=== PATIENT | male | born 1945 | race Caucasian/White ===

== ENCOUNTER 2021-08-08 11:56 | Observation (INO) | payer MEDICAID, SELFPAY ==
--- NOTE | 2021-08-08 12:09 | ECG_ITS ---
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 Measurements Intervals [place] Rate: 104 P: [place]: QRS: -82 QRSD: 128 T: 90 QT: 389 QTc: 512 Interpretive Statements ATRIAL fibrillation with rapid ventricular rate. CONDUCTION OR VENTRICULAR PREMATURE COMPLEXES LEFT AXIS DEVIATION [QRS AXIS < -30] POSSIBLE RIGHT VENTRICULAR CONDUCTION DELAY [RSR (QR) IN V1/V2] LEFT BUNDLE BRANCH BLOCK [120+ ms QRS DURATION, 80+ ms Q/S IN V1/V2, 85+ ms R IN I/aVL/V5/V6] No previous ECG available for comparison Electronically Signed On 08-08-2021 23:55:31 RESEARCH METHODOLOGIST by Mariano Luna M.D. [id number]
--- NOTE | 2021-08-08 12:10 | W.ED.SOB ---
Documented by User: ROSSY Faustin 08/08/21 16:11 HPI - SOB/Dyspnea General: Chief Complaint: Shortness of Breath/Dyspnea Stated Complaint: sob Time Seen by Provider: 08/08/21 16:28 History of Present Illness: HPI Narrative: Patient presents here today with gradually worse shortness of breath. Patient denies any recent illness. Denies any significant health problems. Says he is fine is really hard to breathe when he lays down at night. Does have some increased shortness of breath exertion but is in no distress when he is exerting himself. Denies any history of fluid buildup in his extremities. Also denies cough fever chills or heart difficulties Patient does appear to have dementia after visiting with him a few times MD elicited complaint: shortness of breath [facility] ED PFSH: Medical History (Updated 08/09/21 @ 13:02 by Arie Oneil MD) Congestive heart failure COPD (chronic obstructive pulmonary disease) New onset atrial fibrillation No significant past medical history Surgical History (Updated 08/08/21 @ 22:10 by Arie Oneil MD) No significant past surgical history Family History (Updated 08/08/21 @ 22:11 by Arie Oneil MD) Denies family history of Clotting disorder Chronic kidney disease (CKD) Cancer Social History (Updated 08/08/21 @ 22:11 by Arie Oneil MD) Smoking and tobacco status: former smoker Alcohol intake: former Caregiver/support person: No Lives independently: Yes Household members: none Course Vital Signs: Vital signs: Vital Signs Temperature 97.7 F 08/09/21 09:15 Pulse Rate 92 08/09/21 13:11 Respiratory Rate 27 H 08/09/21 13:11 Blood Pressure 135/83 08/09/21 13:11 Pulse Oximetry 96 08/09/21 09:15 MDM - SOB/Dyspnea MDM Narrative Medical decision making narrative: Brief history and physical exam was performed as part of the triage process. Due to current ED wait time patient will be placed in waiting room until a room becomes available. Explained to patient he/she will be seen in order of severity. Patient is currently safe to wait in the waiting room until we can get them placed. Patient informed that if condition worsens at any time to please let the front end developer know. On patient recheck at 1400 patient appears confused as to his story about shortness of breath. He says only been short of breath 20 minutes and then I kill him about he told me he had been short of breath for couple days then he said he started on Sunday. Has been short of breath since then. He denies any chest pain Lab Data Result diagrams: 08/09/21 02:34 08/09/21 02:34 Labs: Lab Results 08/08/21 08/08/21 08/08/21 13:40 13:40 13:40 WBC 7.4 10^3/uL 10^3/uL (4.0-10.0) RBC 4.79 10^6/uL 10^6/uL (4.1-5.3) Hgb 14.8 g/dL g/dL (11.7-16.6) Hct 41.8 % L % (42.0-52.0) MCV 87.3 fl fl (80-94) MCH 30.9 pg pg (28.0-34.0) MCHC 35.4 g/dL g/dL (30.0-36.0) RDW 12.4 % % (12.1-15.1) Plt Count 206 10^3/cmm 10^3/cmm (130-400) MPV 10.2 fL fL (7.4-10.4) Neut % (Auto) 70.7 % % Lymph % (Auto) 19.2 % % Terry % (Auto) 9.3 % % Eos % (Auto) 0.1 % % Baso % (Auto) 0.3 % % Neut # (Auto) 5.26 10^3/uL 10^3/uL (1.8-7.7) Lymph # (Auto) 1.4 10^3/uL 10^3/uL (0.8-4.8) Terry # (Auto) 0.7 10^3/uL 10^3/uL (0.2-0.9) Eos # (Auto) 0.0 10^3/uL 10^3/uL (0.0-0.8) Baso # (Auto) 0.0 10^3/uL 10^3/uL (0.0-0.1) Nucleated RBC % (auto) 0 % % Nucleated RBCs # 0.0 /100WBC /100WBC PT 14.10 SECONDS SECONDS (12.1-14.9) INR 1.06 (0.8-1.2) Sodium 130 mmol/L L mmol/L (136-145) Potassium 5.0 mmol/L mmol/L (3.5-5.1) Chloride 94 mmol/L L mmol/L (98-107) Carbon Dioxide 20 mmol/L L mmol/L (22-29) Anion Gap 21.0 H (5-19) BUN 20 mg/dL mg/dL (8-23) Creatinine 0.8 mg/dL mg/dL (0.7-1.2) GFR Calculation Not Reportable Glucose 245 mg/dL H mg/dL (65-115) Calculated Osmolality 281 mOsm/kg L mOsm/kg (285-295) Calcium 9.2 mg/dL mg/dL (8.5-10.5) Total Bilirubin 0.7 mg/dL mg/dL (0.15-1.2) AST 33 U/L U/L (0-40) ALT 31 U/L U/L (0-41) Alkaline Phosphatase 129 IU/L IU/L (40-130) Troponin T Baseline Troponin T 120 Minute Delta Troponin T NT-Pro-B Natriuret Pep 3410 pg/mL H pg/mL (0-450) Total Protein 6.2 g/dL L g/dL (6.6-8.7) Albumin 4.0 g/dL g/dL (3.5-5.2) Globulin 2.2 g/dL g/dL (1.3-4.6) TSH 3.70 uIU/mL uIU/mL (0.27-4.20) 08/08/21 08/08/21 13:40 16:04 WBC RBC Hgb Hct MCV MCH MCHC RDW Plt Count MPV Neut % (Auto) Lymph % (Auto) Terry % (Auto) Eos % (Auto) Baso % (Auto) Neut # (Auto) Lymph # (Auto) Terry # (Auto) Eos # (Auto) Baso # (Auto) Nucleated RBC % (auto) Nucleated RBCs # PT INR Sodium Potassium Chloride Carbon Dioxide Anion Gap BUN Creatinine GFR Calculation Glucose Calculated Osmolality Calcium Total Bilirubin AST ALT Alkaline Phosphatase Troponin T Baseline 51 ng/L H ng/L (0-15) Troponin T 120 Minute 53.05 ng/L H ng/L (0-15) Delta Troponin T 2.05 ABS# ABS# (0-10) NT-Pro-B Natriuret Pep Total Protein Albumin Globulin TSH Discharge Plan Discharge Patient Disposition: Placed in Observation Admit Provider: Arie Oneil Clinical Impression: New onset atrial fibrillation, Atrial fibrillation with rapid ventricular response Discharge Diet: Cardiac Discharge Activity: Resume usual activity Coding Level of Care Code ED Latex Fashions Designer for Chg Fwd Documented by User: Rickie Baptiste MD 08/12/21 21:30 HPI - SOB/Dyspnea General: Chief Complaint: Shortness of Breath/Dyspnea Stated Complaint: sob Time Seen by Provider: 08/08/21 16:28 [facility] ED PFSH: Medical History (Updated 08/09/21 @ 13:02 by Arie Oneil MD) Congestive heart failure COPD (chronic obstructive pulmonary disease) New onset atrial fibrillation No significant past medical history Surgical History (Updated 08/08/21 @ 22:10 by Arie Oneil MD) No significant past surgical history Family History (Updated 08/08/21 @ 22:11 by Arie Oneil MD) Denies family history of Clotting disorder Chronic kidney disease (CKD) Cancer Social History (Updated 08/08/21 @ 22:11 by Arie Oneil MD) Smoking and tobacco status: former smoker Alcohol intake: former Caregiver/support person: No Lives independently: Yes Household members: none Course Vital Signs: Vital signs: Vital Signs Temperature 97.7 F 08/09/21 09:15 Pulse Rate 92 08/09/21 13:11 Respiratory Rate 27 H 08/09/21 13:11 Blood Pressure 135/83 08/09/21 13:11 Pulse Oximetry 96 08/09/21 09:15 MDM - SOB/Dyspnea MDM Narrative Medical decision making narrative: I discussed this case with Davide Puckett NP. I personally reperformed sinha portions of E/M. I reviewed documentation, labs, imaging. Rickie Baptiste MD Emergency Medicine Lab Data Result diagrams: 08/09/21 02:34 08/09/21 02:34 Labs: Lab Results 08/08/21 08/08/21 08/08/21 13:40 13:40 13:40 WBC 7.4 10^3/uL 10^3/uL (4.0-10.0) RBC 4.79 10^6/uL 10^6/uL (4.1-5.3) Hgb 14.8 g/dL g/dL (11.7-16.6) Hct 41.8 % L % (42.0-52.0) MCV 87.3 fl fl (80-94) MCH 30.9 pg pg (28.0-34.0) MCHC 35.4 g/dL g/dL (30.0-36.0) RDW 12.4 % % (12.1-15.1) Plt Count 206 10^3/cmm 10^3/cmm (130-400) MPV 10.2 fL fL (7.4-10.4) Neut % (Auto) 70.7 % % Lymph % (Auto) 19.2 % % Terry % (Auto) 9.3 % % Eos % (Auto) 0.1 % % Baso % (Auto) 0.3 % % Neut # (Auto) 5.26 10^3/uL 10^3/uL (1.8-7.7) Lymph # (Auto) 1.4 10^3/uL 10^3/uL (0.8-4.8) Terry # (Auto) 0.7 10^3/uL 10^3/uL (0.2-0.9) Eos # (Auto) 0.0 10^3/uL 10^3/uL (0.0-0.8) Baso # (Auto) 0.0 10^3/uL 10^3/uL (0.0-0.1) Nucleated RBC % (auto) 0 % % Nucleated RBCs # 0.0 /100WBC /100WBC PT 14.10 SECONDS SECONDS (12.1-14.9) INR 1.06 (0.8-1.2) Sodium 130 mmol/L L mmol/L (136-145) Potassium 5.0 mmol/L mmol/L (3.5-5.1) Chloride 94 mmol/L L mmol/L (98-107) Carbon Dioxide 20 mmol/L L mmol/L (22-29) Anion Gap 21.0 H (5-19) BUN 20 mg/dL mg/dL (8-23) Creatinine 0.8 mg/dL mg/dL (0.7-1.2) GFR Calculation Not Reportable Glucose 245 mg/dL H mg/dL (65-115) Calculated Osmolality 281 mOsm/kg L mOsm/kg (285-295) Calcium 9.2 mg/dL mg/dL (8.5-10.5) Total Bilirubin 0.7 mg/dL mg/dL (0.15-1.2) AST 33 U/L U/L (0-40) ALT 31 U/L U/L (0-41) Alkaline Phosphatase 129 IU/L IU/L (40-130) Troponin T Baseline Troponin T 120 Minute Delta Troponin T NT-Pro-B Natriuret Pep 3410 pg/mL H pg/mL (0-450) Total Protein 6.2 g/dL L g/dL (6.6-8.7) Albumin 4.0 g/dL g/dL (3.5-5.2) Globulin 2.2 g/dL g/dL (1.3-4.6) TSH 3.70 uIU/mL uIU/mL (0.27-4.20) 08/08/21 08/08/21 13:40 16:04 WBC RBC Hgb Hct MCV MCH MCHC RDW Plt Count MPV Neut % (Auto) Lymph % (Auto) Terry % (Auto) Eos % (Auto) Baso % (Auto) Neut # (Auto) Lymph # (Auto) Terry # (Auto) Eos # (Auto) Baso # (Auto) Nucleated RBC % (auto) Nucleated RBCs # PT INR Sodium Potassium Chloride Carbon Dioxide Anion Gap BUN Creatinine GFR Calculation Glucose Calculated Osmolality Calcium Total Bilirubin AST ALT Alkaline Phosphatase Troponin T Baseline 51 ng/L H ng/L (0-15) Troponin T 120 Minute 53.05 ng/L H ng/L (0-15) Delta Troponin T 2.05 ABS# ABS# (0-10) NT-Pro-B Natriuret Pep Total Protein Albumin Globulin TSH Discharge Plan Discharge Patient Disposition: Placed in Observation Admit Provider: Arie Oneil Clinical Impression: New onset atrial fibrillation, Atrial fibrillation with rapid ventricular response Discharge Diet: Cardiac Discharge Activity: Resume usual activity Coding Level of Care Code ED Latex Fashions Designer for Guero Potter
[2021-08-08 13:25] VITALS: BP 154/90; PULSE 108; RESP 20; TEMP 36.6; O2SAT 95; BMI 26.2
--- NOTE | 2021-08-08 13:44 | XR_ITS ---
WS: [id number] PORTABLE CHEST HISTORY: sob COMPARISON: None available. Lung volumes are decreased. Perihilar stranding and increased areas of opacification. Small bilateral pleural effusions. No pneumothorax. Cardiac size: Normal. Mediastinum/Aorta: Mild atherosclerosis aorta. No osseous abnormality seen. XR/XR chest 1V portable [id number] IMPRESSION: 1. Moderate perihilar edema versus pneumonitis. 2. Small bilateral pleural effusions.
[2021-08-08 14:10] LABS: Basophils % 0.3 %; Eosinophils % 0.1 %; Hematocrit 41.8 % (42.0-52.0); Hemoglobin 14.8 g/dL (11.7-16.6); Lymphocytes # 1.4 10^3/uL (0.8-4.8); Lymphocytes % 19.2 %; Mean Corpuscular HGB Conc 35.4 g/dL (30.0-36.0); Mean Corpuscular Hemoglobin 30.9 pg (28.0-34.0); Mean Corpuscular Volume 87.3 fl (80-94); Mean Platelet Volume 10.2 fL (7.4-10.4); Monocytes # 0.7 10^3/uL (0.2-0.9); Monocytes % 9.3 %; Neutrophils # 5.26 10^3/uL (1.8-7.7); Neutrophils % 70.7 %; Nucleated Red Blood Cells % 0 %; Platelet Count 206 10^3/cmm (130-400); Red Blood Count 4.79 10^6/uL (4.1-5.3); Red Cell Distribution Width 12.4 % (12.1-15.1); White Blood Count 7.4 10^3/uL (4.0-10.0)
[2021-08-08 14:20] LABS: INR 1.06 (0.8-1.2)
[2021-08-08 14:37] LABS: Troponin(5th) Baseline 51 ng/L (0-15)
[2021-08-08 14:47] LABS: Alanine Aminotransferase 31 U/L (0-41); Alkaline Phosphatase 129 IU/L (40-130); Aspartate Amino Transferase 33 U/L (0-40); Blood Urea Nitrogen 20 mg/dL (8-23); Calcium 9.2 mg/dL (8.5-10.5); Carbon Dioxide 20 mmol/L (22-29); Chloride 94 mmol/L (98-107); Globulin 2.2 g/dL (1.3-4.6); Glucose 245 mg/dL (65-115); NT Pro B Type Natriuretic Pept 3410 pg/mL (0-450); Osmolality Calculated 281 mOsm/kg (285-295); Sodium 130 mmol/L (136-145); Total Bilirubin 0.7 mg/dL (0.15-1.2); Total Protein 6.2 g/dL (6.6-8.7)
[2021-08-08 16:34] LABS: Troponin 5 2HR 53.05 ng/L (0-15); Troponin 5 2HR Delta 2.05 ABS# (0-10)
[2021-08-08 17:20] VITALS: BP 123/94; PULSE 105; RESP 26; TEMP 36.7; O2SAT 94
--- NOTE | 2021-08-08 18:09 | ECG_ITS ---
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 Measurements Intervals [place] Rate: 102 P: [place]: QRS: -65 QRSD: 124 T: 107 QT: 373 QTc: 488 Interpretive Statements ATRIAL FLUTTER WITH RAPID VENTRICULAR RESPONSE LEFT AXIS DEVIATION [QRS AXIS < -30] LEFT BUNDLE BRANCH BLOCK [120+ ms QRS DURATION, 80+ ms Q/S IN V1/V2, 85+ ms R IN I/aVL/V5/V6] Compared to ECG 08/08/2021 13:34:37 Ventricular premature complex(es) no longer present Aberrant conduction of supraventricular beat(s) no longer present Electronically Signed On 08-09-2021 17:29:20 INFORMATICS SPECIALIST by Inés Oneill M.D. [id number]
[2021-08-08 18:30] VITALS: PULSE 96
[2021-08-08] MEDS: FUROsemide 10 mg/mL SDV 4mL 40 MG IVP (18:33)
[2021-08-08] MEDS: dilTIAZem 30 mg Tablet PO ×2 (18:33→21:10)
--- NOTE | 2021-08-08 18:35 | PC.NURSE ---
REPORT TO CSU RN, PATIENT TRANSFERRED VIA WC
--- NOTE | 2021-08-08 18:59 | PM.HP ---
Providers/Chief Complaint Admitting Physician: Arie Oneil MD Chief Complaint: sob History of Present Illness Ramon Mims is a 75 year old male with no significant past medical history and surgical history, not seen a PCP every life who lives for himself presented to the ER today with shortness of breath which has been getting worse over last 1 week. Shortness of breath of start was only on exertion but lately for last 3 days has been getting worse on laying down flat especially at night and now even at rest which made him come to the ER. In the ER he was found to be in atrial fibrillation without rapid ventricular response. Patient has not been vaccinated for COVID 19. Denies any fever. Does complain of shortness of breath, occasional episodes of palpitation, cough but denies any chest pain, chest heaviness, dizziness, loss of consciousness or weakness in any of the arms. Review of Systems General: Reports: 10 or more systems reviewed and unremarkable except in HPI and below Const: Denies: fever(s), chills, body aches, change in appetite, change in weight, malaise, night sweats, diaphoresis, change in sleep pattern, daytime sleepiness or snoring Eyes: Denies: change in vision, blurry vision, photophobia, eye discomfort or eye discharge ENMT: Denies: throat pain, enlarged tonsils, hoarseness, mouth pain, oral sores, dry mouth, tinnitus, nasal congestion or post nasal drip Card: Denies: chest pain, palpitations, irregular heart rhythm, edema, swelling of feet/ankles, lightheadedness, syncope, pre-syncope, dyspnea on exertion, orthopnea, leg pain with exertion or acrocyanosis Resp: Denies: dyspnea, productive cough, non-productive cough, wheezing, stridor, pain on inspiration, change in phlegm color, hemoptysis or chest congestion GI: Denies: abdominal pain, nausea, vomiting, hematemesis, coffee ground emesis, dysphagia, heartburn, diarrhea, constipation, bloating, GI cramping, change in bowel habits, pain on defecation, hematochezia or melena : Denies: flank pain, difficulty urinating, dysuria, urinary frequency, urinary urgency, urinary hesitancy, urinary dribbling, difficulty starting urination, change in urine stream, nocturia or hematuria Musc: Denies: neck pain, back pain, extremity pain, joint pain, joint swelling, joint redness, joint stiffness or limited range of motion Neuro: Denies: headache(s), numbness in extremities, weakness in extremities, sensory changes, lack of coordination, difficulty walking, frequent falls, dizziness, vertigo, confusion, Slurred speech present, difficulty communicating thoughts or seizure-like activity Psych: Denies: anxiety, depression, mood swings, panic attacks, hopelessness or irritability Endo: Denies: polyuria, polydipsia, tired all the time, cold intolerance, excessive sweating, flushing or heat intolerance Brandin/Lymph: Denies: easy bruising or easy bleeding All/Imm: Denies: tongue swelling, facial swelling or acute wheezing Medications/Allergies Allergies Allergy/AdvReac Type Severity Reaction Status Date / Time No Known Allergies Allergy Verified 08/08/21 13:24 PFSH Acute PFSH: Medical History (Updated 08/08/21 @ 22:15 by Arie Oneil MD) No significant past medical history Surgical History (Updated 08/08/21 @ 22:10 by Arie Oneil MD) No significant past surgical history Family History (Updated 08/08/21 @ 22:11 by Arie Oneil MD) Denies family history of Clotting disorder Chronic kidney disease (CKD) Cancer Social History (Updated 08/08/21 @ 22:11 by Arie Oneil MD) Smoking and tobacco status: former smoker Alcohol intake: former Caregiver/support person: No Lives independently: Yes Household members: none Vitals/I&O/Wt Last Vital Signs Temp 98.1 F 08/08/21 17:20 Pulse 96 08/08/21 18:30 Resp 26 H 08/08/21 17:20 BP 123/94 08/08/21 17:20 Pulse Ox 94 08/08/21 17:20 Weight last 48 hrs Weight 95.436 kg Weight 85.457 kg Physical Exam Narrative: EXAM NARRATIVE: General: No acute distress, AO x3 HEENT: PERRLA, pupils bilaterally equal and reactive Chest: Normal vesicular breath sounds, no added sounds, equal good air entry bilaterally CVS: S1-S2 irregularly irregular, soft pansystolic murmur at apex, no tachycardia, no gallops, no rubs Abdomen: Soft, nontender, no organomegaly, bowel sounds present Neuro: No focal deficits, no facial deformity, AO x3, power 5/5 in all limbs Data : 08/08/21 13:40 08/08/21 13:40 A&P Assessment and plan (1) New onset atrial fibrillation: Status: Acute (2) Congestive heart failure: Status: Acute Qualifiers: Heart failure chronicity: acute Additional A&P Information New onset A. fib: Not on rapid ventricular response. Start on p.o. Cardizem 30 mg every 6 hourly. TSH within normal limits. Cycle troponins. Check D-dimer. If D-dimer is elevated will do CTA. Prem vas score: 3: 2 for age, 1 for CHF. Spoke with patient detail. Discussed regarding benefits versus risk factors of anticoagulation. Patient is agreeable to start anticoagulation. For now start on 1 mg/kg body weight every 12 hourly Lovenox. Shortness of breath: Most likely secondary to congestive heart failure. No prior history. IV Lasix [address] CT depending on D-dimer. Strict input output charting, daily weights. Fluid restriction up to 1500 cc. Cannot rule out underlying mild COPD. Check iron panel, lipid panel, A1c, COVID-19 antigen, flu swab. Full code. Cardiac diet. Famotidine for PUD prophylaxis. Attestations Medical Necessity Statement*: Under observation for new onset atrial fibrillation, congestive heart failure. Estimate less than 2 days Time Spent in Patient Care: Greater than 35 minutes (>than 50% of time spent in counselling and/or direct pt care on unit). Coding Level of Care Code Acute Bundle Wrapper for Guero Potter Diagnoses New onset atrial fibrillation I48.91 Congestive heart failure I50.9 Heart failure chronicity: acute
[2021-08-08 19:52] VITALS: PULSE 98
[2021-08-08 20:00] VITALS: BP 133/78; PULSE 96; RESP 18; TEMP 36.6; O2SAT 92
[2021-08-08 20:22] LABS: Add Urine Microscopic? NO; Charge for UA Resulting for Rev
[2021-08-08 20:27] LABS: Bilirubin Urine Neg (Negative); Blood Urine Neg (Negative); Glucose Urine UA Norm (Normal); Ketones Urine 1+ (Negative); Leukocyte Esterase Urine Negative (Negative); Nitrate Urine Negative (Negative); Protein Urine Neg (Negative); Specific Gravity, Urine 1.015 (1.005-1.030); Urine Appearance Clear (CLEAR); Urine Color Yellow (Yellow); Urobilinogen Urine Norm (Negative); pH Urine 5 (5-7)
[2021-08-08 20:37] LABS: Amphetamines Screen Urine Negative (Negative); Barbiturates Screen Urine Negative (Negative); Benzodiazepines Screen Urine Negative (Negative); Cocaine Screen Urine Negative (Negative); Opiate Screen Urine Negative (Negative); PCP Screen Urine Negative (Negative); THC Screen Urine Negative (Negative)
[2021-08-08 20:59] LABS: D Dimer 2.49 ug/mIFEU (0-0.59)
[2021-08-08 21:02] LABS: Iron 55 ug/dL (59-158); Percent Saturation 16.9 % (20-50); Total Iron Binding Capacity 325 mcg/dl; Unsaturated Iron Binding 270 ug/dL (112-347)
[2021-08-08 21:03] LABS: Troponin 5 6HR 56.38 ng/L (0-15); Troponin 5 6HR Delta 5.38 ng/L (0-12)
[2021-08-08] MEDS: enoxaparin 100 mg/mL Syringe SUBCUT (21:06)
[2021-08-08] MEDS: famotidine 20 mg/2 mL INJ IVP (21:10)
[2021-08-08 22:00] VITALS: PULSE 106
--- NOTE | 2021-08-08 22:07 | CTR_ITS ---
PROCEDURE INFORMATION: Exam: CTA Chest With Contrast Exam date and time: 08/08/2021 10:07 PM Age: 75 years old Clinical indication: Abnormal findings; Abnormal diagnostic tests; Elevated d-dimer; Additional info: Elevated dimer, afib TECHNIQUE: Imaging protocol: Computed tomographic angiography of the chest with contrast. 3D rendering (Not supervised by radiologist): MIP and/or 3D reconstructed images were created by the technologist. Radiation optimization: All CT scans at this facility use at least one of these dose optimization techniques: automated exposure control; mA and/or kV adjustment per patient size (includes targeted exams where dose is matched to clinical indication); or iterative reconstruction. Contrast material: VISI; Contrast volume: 95 ml; Contrast route: INTRAVENOUS (IV); COMPARISON: CR XR chest 1V portable [id number] 08/08/2021 1:50 PM RADIATION DOSE METRICS: Total DLP (mGy-cm): 623.54 FINDINGS: Pulmonary arteries: The pulmonary arteries are adequately opacified for evaluation to the subsegmental level. There is no filling defect to suggest embolism. Aorta: There is mild aortic atherosclerotic disease. Lungs: Moderate severity bilateral lung disease characterized by patchy upper lung predominant consolidation with interlobular septal thickening the lower lungs bilaterally. Pleural spaces: Moderate size bilateral pleural effusions. Heart: There is mild cardiac enlargement. There is no pericardial effusion. There is moderate coronary artery calcification. Lymph nodes: Diffusely prominent upper mediastinal lymph nodes of uncertain significance. Prominent bilateral hilar lymph nodes of uncertain significance. Bones/joints: Bones are unremarkable. Soft tissues: The extrathoracic soft tissues are unremarkable. CT/CT angio chest PE protcl [id number] IMPRESSION: 1. Moderate severity bilateral lung disease described above. Probable infection. Indeterminate imaging features of COVID-19 pneumonia. The pulmonary imaging features present here can be seen with COVID-19 pneumonia, though are nonspecific and can occur with a variety of infectious and noninfectious processes. 2. No pulmonary embolism. 3. Moderate bilateral pleural effusions.
[2021-08-08 22:49] LABS: Adenovirus Not Detected (NOT DETECT); Chlamydia Pneumoniae Not Detected (NOT DETECT); Coronavirus 229E,HKU1,NL63,OC4 Not Detected (NOT DETECT); Human Metapneumovirus Not Detected (NOT DETECT); Human Rhinovirus/Enterovirus Not Detected (NOT DETECT); Influenza A Not Detected (NOT DETECT); Influenza A H1 Not Detected (NOT DETECT); Influenza A H1-2009 Not Detected (NOT DETECT); Influenza A H3 Not Detected (NOT DETECT); Influenza B Not Detected (NOT DETECT); Mycoplasma Pneumoniae Not Detected (NOT DETECT); Parainfluenza Virus Type 1 Not Detected (NOT DETECT); Parainfluenza Virus Type 2 Not Detected (NOT DETECT); Parainfluenza Virus Type 3 Not Detected (NOT DETECT); Parainfluenza Virus Type 4 Not Detected (NOT DETECT); Respiratory Syncytial Virus A Not Detected (NOT DETECT); Respiratory Syncytial Virus B Not Detected (NOT DETECT); SARS-COV-2 Not Detected (NOT DETECT)
[2021-08-08 22:51] LABS: Results from Genmark
[2021-08-08] MEDS: iodixanol 320 mg/mL 100mL Btl IV (23:27)
[2021-08-09] VITALS (53 sets, daily range): BP systolic 118–135; BP diastolic 73–86; PULSE 74–97; RESP 10–31; TEMP 36.5; O2SAT 92–96
[2021-08-09] MEDS: acetaminophen 325 mg Tablet 650 MG PO (00:52)
[2021-08-09] MEDS: dilTIAZem 30 mg Tablet PO ×2 (00:54→06:41)
[2021-08-09 02:57] LABS: Basophils % 0.5 %; Eosinophils % 0.6 %; Hematocrit 41.5 % (42.0-52.0); Hemoglobin 14.7 g/dL (11.7-16.6); Lymphocytes # 1.6 10^3/uL (0.8-4.8); Lymphocytes % 24.1 %; Mean Corpuscular HGB Conc 35.4 g/dL (30.0-36.0); Mean Corpuscular Hemoglobin 31.8 pg (28.0-34.0); Mean Corpuscular Volume 89.8 fl (80-94); Mean Platelet Volume 10.3 fL (7.4-10.4); Monocytes # 0.7 10^3/uL (0.2-0.9); Neutrophils % 63.5 %; Nucleated Red Blood Cells % 0 %; Platelet Count 176 10^3/cmm (130-400); Red Blood Count 4.62 10^6/uL (4.1-5.3); Red Cell Distribution Width 12.5 % (12.1-15.1); White Blood Count 6.6 10^3/uL (4.0-10.0)
[2021-08-09 05:14] LABS: Alanine Aminotransferase 28 U/L (0-41); Albumin Level 3.5 g/dL (3.5-5.2); Alkaline Phosphatase 120 IU/L (40-130); Anion Gap 18.9 (5-19); Aspartate Amino Transferase 30 U/L (0-40); Blood Urea Nitrogen 19 mg/dL (8-23); Calcium 9.9 mg/dL (8.5-10.5); Carbon Dioxide 20 mmol/L (22-29); Chloride 99 mmol/L (98-107); Chol HDL Ratio 3.34 mg/dL (1.0-5.00); Cholesterol 137 mg/dL (0-200); Estmated Average Glucose 189; Globulin 2.9 g/dL (1.3-4.6); Glucose 245 mg/dL (65-115); HDL Cholesterol 41 mg/dL (60-100); Hemoglobin A1C 8.2 % (4.0-6.0); LDL Cholesterol Calculated 73 mg/dL (50-129); Magnesium 1.7 mg/dL (1.7-2.3); Osmolality Calculated 288 mOsm/kg (285-295); Potassium 3.9 mmol/L (3.5-5.1); Sodium 134 mmol/L (136-145); Total Bilirubin 0.6 mg/dL (0.15-1.2); Total Protein 6.4 g/dL (6.6-8.7); Triglycerides 115 mg/dL (0-150); VLDL Cholestrol Calculation 23 mg/dL (0-30)
[2021-08-09 05:16] LABS: INR 1.18 (0.8-1.2)
[2021-08-09] MEDS: enoxaparin 100 mg/mL Syringe SUBCUT (06:40)
[2021-08-09] MEDS: famotidine 20 mg/2 mL INJ IVP (06:41)
--- NOTE | 2021-08-09 08:00 | USCV_ITS ---
Ramon Mims Age: 75 Gender: M : 1945 Exam Date: 08/09/2021 09:44 Ordering Phys: Arie Oneil MD Technologist: CAESAR Exam Location: [facility] [place] Indication: New Afib and shortness of breath. No hx cardiac intervention per patient. BP: 129 / 85 HR: 88 Rhythm: Sinus Technical Quality: Adequate MEASUREMENTS (Male / Female) Normal Values 2D ECHO LV Diastolic Diameter PLAX 5.2 cm 4.2 - 5.9 / 3.9 - 5.3 cm LV Systolic Diameter PLAX 4.9 cm IVS Diastolic Thickness 1.3 cm 0.6 - 1.0 / 0.6 - 0.9 cm IVS Systolic Thickness 1.6 cm LVPW Diastolic Thickness 1.5 cm 0.6 - 1.0 / 0.6 - 0.9 cm LVPW Systolic Thickness 1.7 cm LVOT Diameter 2.0 cm LV Ejection Fraction 2D Teich 15.6 % LV Ejection Fraction MOD 2C 16.5 % LV Ejection Fraction 2C AL 18.6 % LA Diameter 4.7 cm LA Width 4.2 cm LA Height 6.1 cm RA Width 4.8 cm RA Height 5.8 cm Aorta at Sinotubular Diameter 3.0 cm M-MODE Aortic Annulus Diameter 3.8 cm LA Ao Ratio MM 1.3 MV E Point Septal Separation 3.1 cm DOPPLER AV Peak Velocity 104.0 cm/s LVOT Peak Velocity 85.0 cm/s AV Area Cont Eq vti 2.5 cm squared AV Area Cont Eq pk 2.5 cm squared MV Peak Velocity 153.0 cm/s MV Area PHT 5.0 cm squared Mitral E to A Ratio 196.3 MV E' Velocity 62.0 cm/s Mitral E to MV E' Ratio 15.1 Mitral E to LV E' Lateral Ratio 19.3 Mitral E to LV E' Septal Ratio 12.4 TR Peak Velocity 306.0 cm/s TR Peak Gradient 37.5 mmHg TV Peak E Velocity 35.0 cm/s Right Atrial Pressure 10.0 mmHg Pulmonary Artery Systolic Pressu 47.5 mmHg PV Peak Velocity 61.0 cm/s FINDINGS Left Ventricle Severe diffuse hypokinesia of the left ventricle with an ejection fraction of 18%. Mildly dilated left ventricular cavity Right Ventricle Normal RV size with slightly diminished ejection fraction Right Atrium Mildly increased right atrial size. Left Atrium Mildly increased left atrial size. Mitral Valve Thickened mitral valve. Possibly severe mitral regurgitation Aortic Valve Thickened aortic valve. Tricuspid Valve At least moderate tricuspid regurgitation. Mild pulmonary hypertension with an estimated pulmonary artery peak systolic pressure of 48 mmHg Pulmonic Valve Structurally normal pulmonic valve without significant stenosis. There is no pulmonic regurgitation. Pericardium Possible large left-sided pleural effusion. Partial collapse of the IVC Aorta Normal aortic annulus size. CONCLUSIONS Severe diffuse hypokinesia of the left ventricle with an ejection fraction of 18%. Mildly dilated left ventricular cavity. Mild biatrial enlargementThickened mitral valve. At least moderate tricuspid regurgitation. Mild pulmonary hypertension with an estimated pulmonary artery peak systolic pressure of 48 mmHg Possibly severe mitral regurgitation. There is no pericardial effusion. There are no intracardiac masses. Possible large left-sided pleural effusion No previous study is available for comparison. Dr Mariano Luna MD FAC (Electronically Signed) Final Date: 10 August 2021 07:00 S
[2021-08-09] MEDS: FUROsemide 10 mg/mL SDV 4mL 40 MG IVP (09:29)
[2021-08-09] MEDS: ferrous gluconate 324 mg Tablet PO (09:29)
--- NOTE | 2021-08-09 12:55 | PM.DCS ---
Discharge Providers Date of Admission: 08/08/21 18:44 Date of Discharge: August 09, 2021 Attending Provider at Admission: Arie Oneil MD Attending Provider at Discharge: Arie Oneil MD Diagnoses at Discharge Discharge Diagnosis (1) New onset atrial fibrillation: Status: Acute (2) Congestive heart failure: Status: Acute Qualifiers: Heart failure chronicity: acute (3) COPD (chronic obstructive pulmonary disease): Status: Acute Reason for Visit Reason for Visit: sob Hospital Course Hospital Course Ramon Mims is a 75 year old male with no significant past medical history and surgical history, not seen a PCP every life who lives for himself presented to the ER today with shortness of breath which has been getting worse over last 1 week.? Shortness of breath of start was only on exertion but lately for last 3 days has been getting worse on laying down flat especially at night and now even at rest which made him come to the ER.? In the ER he was found to be in atrial fibrillation without rapid ventricular response.? Patient has not been vaccinated for COVID 19.? Denies any fever.? Does complain of shortness of breath, occasional episodes of palpitation, cough but denies any chest pain, chest heaviness, dizziness, loss of consciousness or weakness in any of the arms. Patient under the hospital for further evaluation of atrial fibrillation. He was started on oral Cardizem along with Lasix. Patient started feeling better and symptoms improved. Echocardiogram was done but results are still awaited. Anticoagulation was discussed with the patient in detail regarding benefits versus risk factors for stroke prevention. Patient is agreeable to start anticoagulation for now. He was increased in detail to follow-up with a primary care provider as an outpatient. CTA was done which ruled out pulmonary embolism but was consistent with COPD. Physical Exam Narrative: EXAM NARRATIVE: General: No acute distress, AO x3 HEENT: PERRLA, pupils bilaterally equal and reactive Chest: Normal vesicular breath sounds, no added sounds, equal good air entry bilaterally CVS: S1-S2 irregularly irregular, soft pansystolic murmur at apex, no tachycardia, no gallops, no rubs Abdomen: Soft, nontender, no organomegaly, bowel sounds present Neuro: No focal deficits, no facial deformity, AO x3, power 5/5 in all limbs Discharge Data Studies Completed and Pending Completed Studies During Hospitalization Category Date Time Status CT angio chest PE protcl [id number] Routine Cat Scan 08/08/21 22:07 Completed XR chest 1V portable [id number] Urgent Exams 08/08/21 13:44 Completed Pending at discharge Category Date Time Status Blood Culture Stat Lab 08/08/21 02:10 Results CV. echo complete* [id number] Routine Ultrasound 08/09/21 08:00 Taken Radiology Impressions Chest X-Ray 08/08/21 13:44 IMPRESSION: 1. Moderate perihilar edema versus pneumonitis. 2. Small bilateral pleural effusions. Chest CTA 08/08/21 22:07 IMPRESSION: 1. Moderate severity bilateral lung disease described above. Probable infection. Indeterminate imaging features of COVID-19 pneumonia. The pulmonary imaging features present here can be seen with COVID-19 pneumonia, though are nonspecific and can occur with a variety of infectious and noninfectious processes. 2. No pulmonary embolism. 3. Moderate bilateral pleural effusions. Laboratory Results WBC 6.6 10^3/uL (4.0-10.0) 08/09/21 02:34 RBC 4.62 10^6/uL (4.1-5.3) 08/09/21 02:34 Hgb 14.7 g/dL (11.7-16.6) 08/09/21 02:34 Hct 41.5 % (42.0-52.0) L 08/09/21 02:34 MCV 89.8 fl (80-94) 08/09/21 02:34 MCH 31.8 pg (28.0-34.0) 08/09/21 02:34 MCHC 35.4 g/dL (30.0-36.0) 08/09/21 02:34 RDW 12.5 % (12.1-15.1) 08/09/21 02:34 Plt Count 176 10^3/cmm (130-400) 08/09/21 02:34 MPV 10.3 fL (7.4-10.4) 08/09/21 02:34 Neut % (Auto) 63.5 % 08/09/21 02:34 Lymph % (Auto) 24.1 % 08/09/21 02:34 [place] % (Auto) 11.0 % 08/09/21 02:34 Eos % (Auto) 0.6 % 08/09/21 02:34 Baso % (Auto) 0.5 % 08/09/21 02:34 Neut # (Auto) 4.20 10^3/uL (1.8-7.7) 08/09/21 02:34 Lymph # (Auto) 1.6 10^3/uL (0.8-4.8) 08/09/21 02:34 [place] # (Auto) 0.7 10^3/uL (0.2-0.9) 08/09/21 02:34 Eos # (Auto) 0.0 10^3/uL (0.0-0.8) 08/09/21 02:34 Baso # (Auto) 0.0 10^3/uL (0.0-0.1) 08/09/21 02:34 Nucleated RBC % (auto) 0 % 08/09/21 02:34 Nucleated RBCs # 0.0 /100WBC 08/09/21 02:34 PT 15.40 SECONDS (12.1-14.9) H 08/09/21 02:34 INR 1.18 (0.8-1.2) 08/09/21 02:34 D-Dimer 2.49 ug/mIFEU (0-0.59) H 08/08/21 20:09 Sodium 134 mmol/L (136-145) L 08/09/21 02:34 Potassium 3.9 mmol/L (3.5-5.1) 08/09/21 02:34 Chloride 99 mmol/L (98-107) 08/09/21 02:34 Carbon Dioxide 20 mmol/L (22-29) L 08/09/21 02:34 Anion Gap 18.9 (5-19) 08/09/21 02:34 BUN 19 mg/dL (8-23) 08/09/21 02:34 Creatinine 0.7 mg/dL (0.7-1.2) 08/09/21 02:34 GFR Calculation Not Reportable 08/09/21 02:34 Glucose 245 mg/dL (65-115) H 08/09/21 02:34 Estimat Average Glucose 189 08/09/21 02:34 Hemoglobin A1c 8.2 % (4.0-6.0) H 08/09/21 02:34 Calculated Osmolality 288 mOsm/kg (285-295) 08/09/21 02:34 Calcium 9.9 mg/dL (8.5-10.5) 08/09/21 02:34 Phosphorus 3.0 mg/dL (2.5-4.5) 08/09/21 02:34 Magnesium 1.7 mg/dL (1.7-2.3) 08/09/21 02:34 Iron 55 ug/dL (59-158) L 08/08/21 20:09 TIBC 325 mcg/dl 08/08/21 20:09 % Saturation 16.9 % (20-50) L 08/08/21 20:09 Unsat Iron Binding 270 ug/dL (112-347) 08/08/21 20:09 Total Bilirubin 0.6 mg/dL (0.15-1.2) 08/09/21 02:34 AST 30 U/L (0-40) 08/09/21 02:34 ALT 28 U/L (0-41) 08/09/21 02:34 Alkaline Phosphatase 120 IU/L (40-130) 08/09/21 02:34 Troponin T Baseline 51 ng/L (0-15) H 08/08/21 13:40 Troponin T 120 Minute 53.05 ng/L (0-15) H 08/08/21 16:04 Delta Troponin T 2.05 ABS# (0-10) 08/08/21 16:04 Troponin T Hi Sens 6Hr 56.38 ng/L (0-15) H 08/08/21 20:09 Troponin T Hi Sens 6Hr Delta 5.38 ng/L (0-12) 08/08/21 20:09 NT-Pro-B Natriuret Pep 3410 pg/mL (0-450) H 08/08/21 13:40 Total Protein 6.4 g/dL (6.6-8.7) L 08/09/21 02:34 Albumin 3.5 g/dL (3.5-5.2) 08/09/21 02:34 Globulin 2.9 g/dL (1.3-4.6) 08/09/21 02:34 Triglycerides 115 mg/dL (0-150) 08/09/21 02:34 Cholesterol 137 mg/dL (0-200) 08/09/21 02:34 LDL Cholesterol, Calc 73 mg/dL (50-129) 08/09/21 02:34 Total VLDL Cholesterol 23 mg/dL (0-30) 08/09/21 02:34 HDL Cholesterol 41 mg/dL (60-100) L 08/09/21 02:34 Cholesterol/HDL Ratio 3.34 mg/dL (1.0-5.00) 08/09/21 02:34 TSH 3.70 uIU/mL (0.27-4.20) 08/08/21 13:40 Urine Color Yellow (Yellow) 08/08/21 20:00 Urine Appearance Clear (CLEAR) 08/08/21 20:00 Urine pH 5 (5-7) 08/08/21 20:00 Ur Specific [place] 1.015 (1.005-1.030) 08/08/21 20:00 Urine Protein Neg (Negative) 08/08/21 20:00 Urine Glucose (UA) Norm (Normal) 08/08/21 20:00 Urine Ketones 1+ (Negative) H 08/08/21 20:00 Urine Blood Neg (Negative) 08/08/21 20:00 Urine Nitrate Negative (Negative) 08/08/21 20:00 Urine Bilirubin Neg (Negative) 08/08/21 20:00 Urine Urobilinogen Norm mg/dL (Negative) 08/08/21 20:00 Ur Leukocyte Esterase Negative (Negative) 08/08/21 20:00 Nasal Influ A H1 2009 PCR Not detected (NOT DETECT) 08/08/21 20:00 Urine Opiates Screen Negative ng/mL (Negative) 08/08/21 20:00 Ur Barbiturates Screen Negative ng/mL (Negative) 08/08/21 20:00 Ur Phencyclidine Scrn Negative ng/mL (Negative) 08/08/21 20:00 Ur Amphetamines Screen Negative ng/mL (Negative) 08/08/21 20:00 U Benzodiazepines Scrn Negative ng/mL (Negative) 08/08/21 20:00 Urine Cocaine Screen Negative ng/mL (Negative) 08/08/21 20:00 U Marijuana (THC) Screen Negative ng/mL (Negative) 08/08/21 20:00 Coronavirus 229E (PCR) Not detected (NOT DETECT) 08/08/21 20:00 Influenza A (H1) PCR Not detected (NOT DETECT) 08/08/21 20:00 Influenza A (H3) PCR Not detected (NOT DETECT) 08/08/21 20:00 Influenza Type A (PCR) Not detected (NOT DETECT) 08/08/21 20:00 Influenza Type B (PCR) Not detected (NOT DETECT) 08/08/21 20:00 SARS-CoV-2 (PCR) Not detected (NOT DETECT) 08/08/21 20:00 Vitals Last Vital Signs Temp 97.7 F 08/09/21 09:15 Pulse 89 08/09/21 09:15 Resp 14 08/09/21 09:15 BP 129/85 08/09/21 09:15 Pulse Ox 96 08/09/21 09:15 Discharge Plan Discharge Patient Disposition: Home Condition: Stable Prescriptions: New Xarelto 15 mg tablet 15 mg PO DAILY 90 Days Qty: 90 0RF Rx Instructions: must administer with evening meal Cardizem CD 120 mg capsule,extended release 24hr 120 mg PO DAILY 90 Days Qty: 90 0RF Lasix 20 mg tablet 20 mg PO DAILY Qty: 30 0RF potassium chloride 10 mEq capsule, extended release 10 meq PO DAILY Qty: 30 0RF tiotropium bromide 1.25 mcg/actuation mist 2 inh inhalation DAILY PRN (Reason: shortness of breath) Qty: 4 0RF Januvia 100 mg tablet 100 mg PO DAILY Qty: 30 0RF Continued multivitamin Tablet 1 tab PO DAILY 0RF Osteo Bi-Flex 250-200 mg Tablet 1 tab PO BID 0RF Fish Oil 1 cap PO BID 0RF Discontinued aspirin 325 mg Tablet 650 mg PO ONCE 0RF Discharge Orders: Discharge Order (Routine); Ordered 08/09/21 Ordered By: Arie Oneil Referrals: Cody Timmons DO [Physician] - 08/16/21 4:00 pm (August 16Sunday at 4pm) Mariano Luna MD [Physician] - 2 weeks Discharge Diet: Cardiac Discharge Activity: Resume usual activity Patient Instructions: Opioid Safety Activity Restrictions/Additional Instructions: PMPlease follow-up with your primary care provider on set appointment on August 16. Please follow-up with Dr. Luna from cardiology within next 2 weeks. You will be on Cardizem which is the rate controlling medicine for heart rhythm once daily. You will be on 20 mg of Lasix which is the water pill once daily. Along with that also take potassium 10 mEq once daily. Blood thinner would be Xarelto 15 mg daily. Please use inhaler as needed. Januvia is the diabetes medication which usually take once daily. Discharge Attestations Time Spent in Discharge Care*: greater than 30 min Specific Discharge Activities: educating patient, discussing with renal case manager/social workers/dc planners, documenting/other paperwork and evaluating patient/reviewing data Status at Discharge: Cognitive status at discharge: cognitively intact, Behavioral status at discharge: cooperative, Functional status at discharge: independent ambulation, Overall status at discharge: patient is back to baseline Quality Metrics Clinical Quality Measures [ No reported AMI, CVA or VTE this stay] Coding Level of Care Code Acute [facility] DC note Diagnoses New onset atrial fibrillation I48.91 Congestive heart failure I50.9 Heart failure chronicity: acute COPD (chronic obstructive pulmonary disease) J44.9
--- NOTE | 2021-08-09 15:26 | PC.NURSE ---
Meds to bed/340 B plan For pt's new Rx. Pt initially wants to call his new Rx to [facility]. when sylvestermartitasweetie got called pt was asked if he has prescription insurance. He stated he does not. Pt informed on the prices of his new meds. after discussion of his new rx prices, pt informed if he wants me to call to our pharmacy since they have a 340 B insurance. Pt agreed. Called [facility] and asked them to transfer his new meds to our pharmacy. candace coupons given to pt.
--- NOTE | 2021-08-09 16:45 | PC.NURSE ---
case mgt notified regarding pt's unable to afford his new Rx. pt will get his 340 B and educated pt to discuss this with his PCP and sleeve setter lockstitch for any new meds. Pt verbalizes understanding.
--- NOTE | 2021-08-09 16:49 | PC.NURSE ---
Follow-up with pt's meds to bed. Pt and friend informed that [facility] will be delivering their meds in an hour.
--- NOTE | 2021-08-09 20:44 | PC.NURSE ---
Discharge Note Patient discharged to home via wheelchair accompanied by friend nimo. Discharge instructions reviewed with patient and/or business representative. Mobile pharmacy medications and/or prescriptions provided. Belongings/home medications returned.
--- NOTE | 2021-08-10 16:51 | PC.SOCIAL ---
Updated patient that his appt with Dr Oneill has been changed to 08/22/2021 at 3:30pm. Son and patient notified. Dr Oneil has talked to patient and son to update on results of Echo as well. This nurse also notified nurse for Dr Mai Ramos of results to follow up on this at appt. All questions answered. Patient repeated back appointment to confirm.
== END 2021-08-09 17:26 | disposition home or self-care (01) ==
LOC: ER 17:54 → CSU 08-09 06:24
PROVIDERS: Nurse Practitioner Family; Admitting Provider Student in an Organized Health Care Education/Training Program; Emergency Provider Emergency Medicine; Visit Provider Student in an Organized Health Care Education/Training Program
DX: I48.91 Unspecified atrial fibrillation (principal); I50.9 Heart failure, unspecified; J44.9 Chronic obstructive pulmonary disease, unspecified; Z87.891 Personal history of nicotine dependence; J90 Pleural effusion, not elsewhere classified
CPT/HCPCS: 36415; 71045; 71275; 80053; 80061; 80306; 81003; 83036; 83540; 83550; 83735; 83880; 84100; 84443; 84484; 85025; 85378; 85610; 87040; 87631; 87635; 93005; 93306; 94664; 96372; 96374; 99285; G0378; J1650; J1940; J3490; Q9967

== ENCOUNTER → 2021-08-22 16:44 | Outpatient (BNVA) | payer MEDICAID, SELFPAY | PROVIDERS: PCP Neurological Surgery; Visit Provider Internal Medicine Cardiovascular Disease | DX: I50.9 Heart failure, unspecified (principal); I25.10 Atherosclerotic heart disease of native coronary artery without angina pectoris; E11.9 Type 2 diabetes mellitus without complications; I07.1 Rheumatic tricuspid insufficiency | CPT/HCPCS: 80053; 83735; 83880; 85025 ==

== ENCOUNTER 2021-08-29 13:48 | Outpatient (CLI) | payer MEDICAID, SELFPAY ==
--- NOTE | 2021-08-29 14:07 | XRR_ITS ---
PROCEDURE INFORMATION: Exam: XR Chest Exam date and time: 08/29/2021 2:07 PM Age: 75 years old Clinical indication: Cardiovascular condition or disease; Other: Heart failure, unspecified; Additional info: I50.9 - heart failure, unspecified TECHNIQUE: Imaging protocol: XR of the chest. Views: 2 views. COMPARISON: CR XR chest 1V portable [id number] 08/08/2021 1:50 PM FINDINGS: Lungs: Minor scattered scarring within the lungs. No consolidation. Pleural spaces: Unremarkable. No pleural effusion. No pneumothorax. Heart/Mediastinum: Unremarkable. No cardiomegaly. Bones/joints: Visualized osseous structures are intact. XR/XR chest 2V* [id number] IMPRESSION: No acute findings.
[2021-08-29 14:42] LABS: Basophils % 0.3 %; Eosinophils # 0.2 10^3/uL (0.0-0.8); Eosinophils % 2.9 %; Hematocrit 45.6 % (42.0-52.0); Hemoglobin 15.5 g/dL (11.7-16.6); Lymphocytes # 1.4 10^3/uL (0.8-4.8); Lymphocytes % 22.9 %; Mean Corpuscular Hemoglobin 30.5 pg (28.0-34.0); Mean Corpuscular Volume 89.8 fl (80-94); Mean Platelet Volume 10.2 fL (7.4-10.4); Monocytes # 0.5 10^3/uL (0.2-0.9); Monocytes % 8.7 %; Neutrophils # 4.05 10^3/uL (1.8-7.7); Neutrophils % 64.9 %; Nucleated Red Blood Cells % 0 %; Platelet Count 151 10^3/cmm (130-400); Red Blood Count 5.08 10^6/uL (4.1-5.3); Red Cell Distribution Width 12.2 % (12.1-15.1); White Blood Count 6.2 10^3/uL (4.0-10.0)
[2021-08-29 15:05] LABS: Prothrombin Time (Patient) 15.5 Seconds (12.0-15.1)
[2021-08-29 15:10] LABS: Blood Urea Nitrogen 19 mg/dL (8-23); Carbon Dioxide 28 mmol/L (22-29); Chloride 98 mmol/L (98-107); Glucose 157 mg/dL (65-115); Osmolality Calculated 288 mOsm/kg (285-295); Sodium 136 mmol/L (136-145)
[2021-08-29 18:18] LABS: Magnesium 1.8 mg/dL (1.7-2.3); NT Pro B Type Natriuretic Pept 3557 pg/mL (0-450)
[2021-08-31 14:58] LABS: Quest SARS-CoV-2 RNA NOT DETECTED (NOT DETECTED)
== END 2021-08-29 13:49 | disposition home or self-care (01) ==
PROVIDERS: PCP Neurological Surgery; Referring Provider Internal Medicine Cardiovascular Disease; Visit Provider Family Medicine
DX: E11.621 Type 2 diabetes mellitus with foot ulcer (principal); L97.519 Non-pressure chronic ulcer of other part of right foot with unspecified severity; I50.9 Heart failure, unspecified; I48.91 Unspecified atrial fibrillation; J44.9 Chronic obstructive pulmonary disease, unspecified; I44.7 Left bundle-branch block, unspecified; I07.1 Rheumatic tricuspid insufficiency; I34.0 Nonrheumatic mitral (valve) insufficiency
CPT/HCPCS: 36415; 71046; 80048; 83735; 83880; 85025; 85610; 87635

== ENCOUNTER 2021-09-06 15:01 | Inpatient (IN) | payer MEDICARE, MEDICAID, SELFPAY ==
[2021-09-06] VITALS (11 sets, daily range): BP systolic 101–130; BP diastolic 62–88; PULSE 80–95; RESP 15–18; TEMP 36.2–37; O2SAT 96–99; BMI 24.5
--- NOTE | 2021-09-06 15:29 | ED_ITS ---
HPI - Male Genitourinary General: Chief complaint: Urogenital-Male Stated complaint: hematuria Time Seen by Provider: 09/06/21 15:04 History of Present Illness: 75-year-old male with a history of A. fib was previously on Xarelto. He began experiencing gross hematuria and the cardiolo gist stopped the Xarelto is persisted since stopping it about a week ago. He has been able to empty his bladder but at times he has had difficulty and had to strain significantly. Beyond that hematuria has been painless. He denies any dysuria urgency or frequency any flank pain. No history of renal stones. He does have a history of some BPH. Onset (ago): week(s) (1) Duration: constant Severity: moderate Quality: aching Relieving factors: none Exacerbating factors: none Associated symptoms: Reports hematuria and urinary retention; Deny discharge, dysuria, fevers/chills, nausea, rash, swelling, urinary incontinence, mass or vomiting Review of Systems Const: Denies: fever(s), chills, body aches, change in appetite, fatigue or malaise ENMT: Denies: throat pain, ear or mastoid pain, nasal discharge or nasal congestion Card: Denies: chest pain, edema, dyspnea on exertion or orthopnea Resp: Denies: dyspnea, productive cough or non-productive cough GI: Denies: nausea or vomiting : Reports: hematuria; Denies: dysuria or urinary incontinence Skin/Breast: Denies: rash or pruritus [facility] ED PFSH: Medical History Clot retention of urine Congestive heart failure COPD (chronic obstructive pulmonary disease) Diabetes mellitus LBBB (left bundle branch block) Mitral regurgitation New onset atrial fibrillation Tricuspid valve regurgitation Surgical History No significant past surgical history Family History Denies family history of Clotting disorder Chronic kidney disease (CKD) Cancer Social History Smoking and tobacco status: never smoked Alcohol intake: former Caregiver/support person: No Lives independently: Yes Household members: none Physical Exam Const: GENERAL APPEARANCE: cooperative and comfortable ORIENTATION/CONSCIOUSNESS: Yes awake, Yes oriented to person, Yes oriented to place and Yes oriented to time HENMT: COMMON NORMALS: normocephalic, atraumatic and hearing grossly normal bilaterally HEAD & SCALP: normocephalic and atraumatic Neck/C-Spine: COMMON NORMALS: no JVD Resp: COMMON NORMALS: normal respiratory effort, No retractions, No use of accessory muscles and clear to auscultation bilaterally AUSCULTATION: clear to auscultation bilaterally Cardio: COMMON NORMALS: no JVD, regular rate, regular rhythm and No murmurs present (Cardio) RATE: regular rate RHYTHM: regular rhythm GI: COMMON NORMALS: Soft to palpation and No hepatosplenomegaly present AUSCULTATION: Yes normoactive bowel sounds PALPATION: Yes Soft to palpation, No Tenderness to palpation present (GI), No Guarding due to palpation present (GI) and Yes No hepatosplenomegaly present : COMMON NORMALS: Yes no CVA tenderness BLADDER/KIDNEY EXAM: Yes no CVA tenderness Back/Pelvis: COMMON NORMALS: no CVA tenderness Extremity: COMMON NORMALS: normal to inspection, capillary refill normal, no clubbing, cyanosis or edema, no calf tenderness and no pedal edema Neuro: SENSORIUM/ORIENTATION: Yes oriented to person, Yes oriented to place and Yes oriented to time Skin: COMMON NORMALS: no rashes or lesions noted GENERAL SKIN EXAM: no rashes or lesions noted Course Vital Signs: Vital signs: Vital Signs Temperature 97.9 F 09/06/21 21:34 Pulse Rate 84 09/07/21 00:00 Respiratory Rate 16 09/07/21 00:00 Blood Pressure 127/69 09/07/21 00:00 Pulse Oximetry 95 09/07/21 00:11 MDM - Male Medical Decision Making Chatman placed CT shows a large amount of clot in the bladder nearly completely fi lling it. Were unable to get a large enough [place] in it to irrigate the bladder effectively. Called discussed Dr. Garcia will admit with the hospitalist and consult him for bladder obstruction due to clot. Discussed with the patient orders written Medical Records I reviewed the patient's medical records. Lab Data I reviewed the patient's lab results. : 09/07/21 04:50 09/06/21 16:00 Radiology Impressions Abdomen/Pelvis CT 09/06/21 15:29 IMPRESSION: 1. Hyperdense blood clot in the urinary bladder. A superimposed urinary bladder lesion is not excluded. Follow-up with cystoscopy is recommended. 2. 6.7 cm complex septated cystic and calcified lesion in the inferior left kidney. Recommend non-emergent MRI without and with contrast or non-emergent CT without and with contrast. MRI is preferred for masses under 1.5 cm. 3. Inhomogenous enlarged prostate. 4. Cholelithiasis with a probable 2 mm stone in the cystic duct. No definite evidence for cholecystitis. COMMENTS: Consistent with the [employer]'s Incidental Findings Committee white paper (J Am Clair Radiol 2018): Any incidental renal lesion less than 1 cm or classified as too small to characterize, or any incidental cystic renal lesion characterized as simple-appearing, is likely benign. No follow-up imaging is recommended for these lesions per consensus recommendations based on imaging criteria. Laboratory Results WBC 6.9 10^3/uL (4.0-10.0) 09/06/21 16:00 RBC 4.28 10^6/uL (4.1-5.3) 09/06/21 16:00 Hgb 13.0 g/dL (11.7-16.6) 09/06/21 16:00 Hct 38.1 % (42.0-52.0) L 09/06/21 16:00 MCV 89.0 fl (80-94) 09/06/21 16:00 MCH 30.4 pg (28.0-34.0) 09/06/21 16:00 MCHC 34.1 g/dL (30.0-36.0) 09/06/21 16:00 RDW 12.4 % (12.1-15.1) 09/06/21 16:00 Plt Count 186 10^3/cmm (130-400) 09/06/21 16:00 MPV 10.7 fL (7.4-10.4) H 09/06/21 16:00 Neut % (Auto) 60.0 % 09/06/21 16:00 Lymph % (Auto) 25.1 % 09/06/21 16:00 [place] % (Auto) 11.7 % 09/06/21 16:00 Eos % (Auto) 2.6 % 09/06/21 16:00 Baso % (Auto) 0.3 % 09/06/21 16:00 Neut # (Auto) 4.14 10^3/uL (1.8-7.7) 09/06/21 16:00 Lymph # (Auto) 1.7 10^3/uL (0.8-4.8) 09/06/21 16:00 [place] # (Auto) 0.8 10^3/uL (0.2-0.9) 09/06/21 16:00 Eos # (Auto) 0.2 10^3/uL (0.0-0.8) 09/06/21 16:00 Baso # (Auto) 0.0 10^3/uL (0.0-0.1) 09/06/21 16:00 Nucleated RBC % (auto) 0 % 09/06/21 16:00 Nucleated RBCs # 0.0 /100WBC 09/06/21 16:00 PT 15.20 SECONDS (12.1-14.9) H 09/06/21 16:00 INR 1.16 (0.8-1.2) 09/06/21 16:00 APTT 29.6 SECONDS (23.9-36.7) 09/06/21 16:00 Sodium 140 mmol/L (136-145) 09/06/21 16:00 Potassium 4.5 mmol/L (3.5-5.1) 09/06/21 16:00 Chloride 102 mmol/L (98-107) 09/06/21 16:00 Carbon Dioxide 27 mmol/L (22-29) 09/06/21 16:00 Anion Gap 15.5 (5-19) 09/06/21 16:00 BUN 14 mg/dL (8-23) 09/06/21 16:00 Creatinine 0.7 mg/dL (0.7-1.2) 09/06/21 16:00 GFR Calculation Not Reportable 09/06/21 16:00 Glucose 142 mg/dL (65-115) H 09/06/21 16:00 Calculated Osmolality 293 mOsm/kg (285-295) 09/06/21 16:00 Calcium 9.9 mg/dL (8.5-10.5) 09/06/21 16:00 Total Bilirubin 1.0 mg/dL (0.15-1.2) 09/06/21 16:00 AST 20 U/L (0-40) 09/06/21 16:00 ALT 11 U/L (0-41) 09/06/21 16:00 Alkaline Phosphatase 87 IU/L (40-130) 09/06/21 16:00 Total Protein 6.9 g/dL (6.6-8.7) 09/06/21 16:00 Albumin 3.8 g/dL (3.5-5.2) 09/06/21 16:00 Globulin 3.1 g/dL (1.3-4.6) 09/06/21 16:00 TSH 3.02 uIU/mL (0.27-4.20) 09/06/21 16:00 Urine Color Red (Yellow) 09/06/21 16:17 Urine Appearance Bloody (CLEAR) A 09/06/21 16:17 Urine pH 6.5 (5-7) 09/06/21 16:17 Ur Specific [place] 1.015 (1.005-1.030) 09/06/21 16:17 Urine Protein 3+ (Negative) H 09/06/21 16:17 Urine Glucose (UA) Norm (Normal) 09/06/21 16:17 Urine Ketones Negative (Negative) 09/06/21 16:17 Urine Blood 3+ (Negative) H 09/06/21 16:17 Urine Nitrate Negative (Negative) 09/06/21 16:17 Urine Bilirubin Neg (Negative) 09/06/21 16:17 Urine Urobilinogen Norm mg/dL (Negative) 09/06/21 16:17 Ur Leukocyte Esterase Negative (Negative) 09/06/21 16:17 Urine RBC >100 /hpf (0-2) H 09/06/21 16:17 Urine WBC 5-10 /hpf (0-5) H 09/06/21 16:17 Ur Squamous Epith Cells 0-4 /hpf (0-5) H 09/06/21 16:17 Amorphous Sediment Not Reportable 09/06/21 16:17 Urine Bacteria 1+ /hpf (NONE) H 09/06/21 16:17 Discharge Plan Discharge Patient Disposition: Admitted As Inpatient Admit Provider: Chino Randhawa Clinical Impression: Clot retention of urine, Diabetes mellitus, Systolic CHF, chronic, Hematuria, Left kidney mass, COPD (chronic obstructive pulmonary disease), Atrial fibrillation Condition: Stable Coding Level of Care Code ED [employer] for Chg Fwd Exam Comprehensive
--- NOTE | 2021-09-06 15:29 | CTR_ITS ---
PROCEDURE INFORMATION: Exam: CT Abdomen And Pelvis Without Contrast Exam date and time: 09/06/2021 3:29 PM Age: 75 years old Clinical indication: Other: Hematuria TECHNIQUE: Imaging protocol: Computed tomography of the abdomen and pelvis without contrast. Radiation optimization: All CT scans at this facility use at least one of these dose optimization techniques: automated exposure control; mA and/or kV adjustment per patient size (includes targeted exams where dose is matched to clinical indication); or iterative reconstruction. COMPARISON: CT angio chest PE protcl [id number] 08/08/2021 11:24 PM RADIATION DOSE METRICS: Total DLP (mGy-cm): 790.37 FINDINGS: Lungs: Emphysema. Faint ground-glass opacities in both lower lobes. The previous consolidations in the lung bases have resolved. Pleural spaces: Small right pleural effusion. Liver: Normal. No mass. Gallbladder and bile ducts: Multiple small calcified stones in the dependent gallbladder. No visible wall thickening. Probable 2 mm calcified stone in the cystic duct. The bile ducts are within normal limits. Pancreas: Multiple coarse calcifications in the medial pancreatic head and a few scattered throughout the pancreas. This is consistent with chronic calcific pancreatitis. No evidence for acute pancreatitis. Spleen: Calcified granulomas in the spleen. Adrenal glands: Normal. No mass. Kidneys and ureters: 1 mm calculus in the superior right kidney. 6.7 cm multiloculated, septated and partially calcified cystic lesion in the inferior left kidney, Hounsfield units less than 20. No ureteral calculus or hydronephrosis. Stomach and bowel: Mild diverticulosis of the proximal colon. No diverticulitis. The stomach and small bowel are unremarkable. No wall thickening or obstruction. Appendix: The appendix is visualized and is unremarkable. Intraperitoneal space: Unremarkable. No free air. No significant fluid collection. Vasculature: Arterial calcifications. No aneurysm. Lymph nodes: Unremarkable. No enlarged lymph nodes. Urinary bladder: Chatman catheter in the urinary bladder. Hyperdense inhomogenous material in the urinary bladder, consistent with blood products. A superimposed mass cannot be excluded. Reproductive: Enlarged inhomogenous calcified prostate measuring 7.1 cm transversely. Bones/joints: Degenerative changes and curvature of the spine. No fracture identified. Soft tissues: Fat containing bilateral inguinal hernias. CT/CT kidney stone [id number] IMPRESSION: 1. Hyperdense blood clot in the urinary bladder. A superimposed urinary bladder lesion is not excluded. Follow-up with cystoscopy is recommended. 2. 6.7 cm complex septated cystic and calcified lesion in the inferior left kidney. Recommend non-emergent MRI without and with contrast or non-emergent CT without and with contrast. MRI is preferred for masses under 1.5 cm. 3. Inhomogenous enlarged prostate. 4. Cholelithiasis with a probable 2 mm stone in the cystic duct. No definite evidence for cholecystitis. COMMENTS: Consistent with the [employer]'s Incidental Findings Committee white paper (J Am Clair Radiol 2018): Any incidental renal lesion less than 1 cm or classified as too small to characterize, or any incidental cystic renal lesion characterized as simple-appearing, is likely benign. No follow-up imaging is recommended for these lesions per consensus recommendations based on imaging criteria.
[2021-09-06 16:28] LABS: Basophils % 0.3 %; Eosinophils # 0.2 10^3/uL (0.0-0.8); Eosinophils % 2.6 %; Hematocrit 38.1 % (42.0-52.0); Lymphocytes # 1.7 10^3/uL (0.8-4.8); Lymphocytes % 25.1 %; Mean Corpuscular HGB Conc 34.1 g/dL (30.0-36.0); Mean Corpuscular Hemoglobin 30.4 pg (28.0-34.0); Mean Platelet Volume 10.7 fL (7.4-10.4); Monocytes # 0.8 10^3/uL (0.2-0.9); Monocytes % 11.7 %; Neutrophils # 4.14 10^3/uL (1.8-7.7); Nucleated Red Blood Cells % 0 %; Platelet Count 186 10^3/cmm (130-400); Red Blood Count 4.28 10^6/uL (4.1-5.3); Red Cell Distribution Width 12.4 % (12.1-15.1); White Blood Count 6.9 10^3/uL (4.0-10.0)
[2021-09-06 16:43] LABS: Add Urine Microscopic? YES; Bilirubin Urine Neg (Negative); Blood Urine 3+ (Negative); Glucose Urine UA Norm (Normal); Ketones Urine Negative (Negative); Leukocyte Esterase Urine Negative (Negative); Nitrate Urine Negative (Negative); Protein Urine 3+ (Negative); Specific Gravity, Urine 1.015 (1.005-1.030); Urine Appearance Bloody (CLEAR); Urine Color Red (Yellow); Urobilinogen Urine Norm (Negative); pH Urine 6.5 (5-7)
[2021-09-06 16:45] LABS: Add Urine Culture? Yes; Bacteria Urine 1+ /hpf; RBC Urine >100 /hpf (0-2); Squamous Epithelial Cell Urine 0-4 /hpf (0-5)
[2021-09-06 16:52] LABS: INR 1.16 (0.8-1.2)
[2021-09-06 16:53] LABS: Partial Thromboplastin Time 29.6 SECONDS (23.9-36.7)
[2021-09-06 17:01] LABS: Alanine Aminotransferase 11 U/L (0-41); Albumin Level 3.8 g/dL (3.5-5.2); Alkaline Phosphatase 87 IU/L (40-130); Aspartate Amino Transferase 20 U/L (0-40); Blood Urea Nitrogen 14 mg/dL (8-23); Calcium 9.9 mg/dL (8.5-10.5); Carbon Dioxide 27 mmol/L (22-29); Chloride 102 mmol/L (98-107); Globulin 3.1 g/dL (1.3-4.6); Glucose 142 mg/dL (65-115); Osmolality Calculated 293 mOsm/kg (285-295); Sodium 140 mmol/L (136-145); Total Protein 6.9 g/dL (6.6-8.7)
[2021-09-06 17:03] LABS: Anion Gap 15.5 (5-19); Potassium 4.5 mmol/L (3.5-5.1)
--- NOTE | 2021-09-06 17:58 | P.HP_ITS ---
Providers/Chief Complaint Admitting Physician: Radha Primary Care Provider: Abimael Verde MD Chief Complaint: Clot retention History of Present Illness Ramon Mims is a 75 year old male who I evaluated for the first time tonight at the request of Dr. Sparks. He presented to the emergency department for persistent gross hematuria and difficulty voiding at times related to clots with several episodes of near retention. No overt UTI symptoms. Has been on Xarelto for atrial fibrillation but that was stopped recently by his radiation monitor. Has been off of it for about a week now. CT scan demonstrated a large clot in the bladde with what appears to be both new and old blood.. Attempts at clearing the clots from the bladder with both routine Chatman and hematuria catheter were unsuccessful. I spoke with the nurse who placed the original catheter and then attempted a larger catheter. A small catheter went in without difficulty but the larger catheter did not go a ll the way and there was some blood after the catheter was removed. Reattempt with a smaller catheter was also unsuccessful. May represent false passage Clinically he is stable. Hemoglobin 13. Baseline voiding is actually pretty good. He states he wakes up anywhere from 1-3 times per night. Generally good volume. He does drink a lot of fluid at night. No real significant voiding dysfunction during the day. Does not take prescription prostatic medications but he does take some holistic supplements. He denies any prostatic surgery, difficulties with catheter etc. I reviewed the CT scan labs chart and H&P performed by Dr. Antunez. Reviewed records from previous admission related to A. fib. Given the difficulty had obtaining good bladder drainage with an adequate catheter size, was recommended that he go to the operating room emergently for cystoscopy and clot evacuation. We will also be prepared to deal with any other pathologic findings may be contributing. Also reviewed postop CBI, potential for other pathologic features identified in the bladder as a source of bleeding, reasonable expectations regarding hospital stay etc. Additional medical problems: Diabetes, left bundle branch block, and history of congestive heart failure, atrial fibrillation, COPD. Review of Systems Const: Denies: fever(s) or chills Eyes: Denies: change in vision or blurry vision ENMT: Reports: change in hearing (Chronic hearing loss) Card: Denies: chest pain or palpitations Resp: Denies: productive cough GI: Reports: abdominal pain and GI cramping : Reports: oliguria and other (Gross hematuria with clots); Denies: flank pain Musc: Denies: joint redness or joint warmth Skin/Breast: Denies: jaundice Neuro: Denies: confusion or Slurred speech present Psych: Denies: anxiety or depression Endo: Reports: flushing Brandin/Lymph: Reports: easy bruising and easy bleeding; Denies: tender lymph nodes All/Imm: Denies: urticaria or acute wheezing Medications/Allergies Home Medications Medication Instructions Recorded Confirmed Last Taken Type Fish Oil 1 cap PO BID 08/09/21 08/29/21 Unknown History glucosamine-chondroitin 250 mg-200 1 tab PO BID 08/09/21 08/29/21 Unknown History mg tablet (Osteo Bi-Flex) multivitamin 1 tab PO DAILY 08/09/21 08/29/21 Unknown History tiotropium bromide 1.25 2 inh INHALATION DAILY PRN #4 g 08/09/21 08/29/21 Unknown Rx mcg/actuation mist for inhalation cephalexin 500 mg capsule 500 mg PO BID #14 cap 08/24/21 08/29/21 Unknown Rx furosemide 40 mg tablet 40 mg PO BID #60 tab 08/24/21 08/29/21 Unknown Rx potassium chloride 20 mEq 20 meq PO DAILY #60 tab 08/24/21 08/29/21 Unknown Rx tablet,extended release carvedilol 6.25 mg tablet (Coreg) 6.25 mg PO BID #180 tab 08/25/21 08/29/21 Unknown Rx metformin 500 mg tablet 500 mg PO BID #180 tab 08/25/21 08/29/21 Unknown Rx rivaroxaban 20 mg tablet 20 mg PO DAILY 90 Days #90 tab 08/25/21 08/29/21 Unknown Rx sacubitril 24 mg-valsartan 26 mg 1 tab PO BID #180 tab 08/31/21 Unknown Rx tablet (Entresto) Allergies Allergy/AdvReac Type Severity Reaction Status Date / Time No Known Allergies Allergy Verified 08/29/21 15:19 PFSH Acute PFSH: Medical History Clot retention of urine Congestive heart failure COPD (chronic obstructive pulmonary disease) Diabetes mellitus LBBB (left bundle branch block) Mitral regurgitation New onset atrial fibrillation Tricuspid valve regurgitation Surgical History No significant past surgical history Family History Denies family history of Clotting disorder Chronic kidney disease (CKD) Cancer Social History Smoking and tobacco status: never smoked Alcohol intake: former Caregiver/support person: No Lives independently: Yes Household members: none Vitals/I&O/Wt Last Vital Signs Temp 97.4 F L 09/06/21 15:11 Pulse 83 09/06/21 15:30 Resp 16 09/06/21 15:30 BP 102/69 09/06/21 15:30 Pulse Ox 98 09/06/21 15:30 Weight last 48 hrs Weight 176 lb Physical Exam Const: COMMON NORMALS: no acute distress, patient oriented x3 and well nourished HENMT: COMMON NORMALS: normocephalic (Hard of hearing) and atraumatic Eye: COMMON NORMALS: no scleral icterus Neck/C-Spine: OTHER: Good range of motion. No masses Lymph: OTHER: No palpable lymphadenopathy Resp: COMMON NORMALS: normal respiratory effort and clear to auscultation bilaterally Cardio: OTHER: Irregular rate and rhythm no murmurs GI: OTHER: Soft, nontender. Bladder feels distended. No other palpable masses. No CVA tenderness : OTHER: No catheter. Normal genitalia exam except for blood at meatus Back/Pelvis: COMMON NORMALS: no CVA tenderness Extremity: COMMON NORMALS: normal to inspection Neuro: OTHER: Alert and oriented no acute distress very pleasant cooperative throughout exam. No focal symptoms. Psych: COMMON NORMALS: mental status grossly normal, Normal thought process present and cooperative Skin: OTHER: No jaundice Urinary Catheter Management: Chatman: Cath Placed During This Visit: yes Urinary Catheter Date of Insertion: 09/06/21 Urinary Catheter Time of Insertion: 16:30 Data : 09/06/21 16:00 09/06/21 16:00 A&P Assessment and plan (1) Clot retention of urine: To the operating room emergently for cystoscopy clot evacuation. Status: Acute (2) Diabetes mellitus: Status: Acute (3) Congestive heart failure: Status: Acute Qualifiers: Heart failure chronicity: acute (4) New onset atrial fibrillation: Status: Acute (5) COPD (chronic obstructive pulmonary disease): Status: Acute (6) LBBB (left bundle branch block): Status: Acute Attestations Medical Necessity Statement*: Clot retention. Failed attempt at clot evacuation emergency department. To the operating room emergently for clot evacuation. 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
--- NOTE | 2021-09-06 18:04 | P.HP_ITS ---
Providers/Chief Complaint Primary Care Provider: Abimael Verde MD Chief Complaint: Clot retention History of Present Illness Ramon Mims is a 75 year old male with a past medical history of congestive heart failure, new onset atrial fibrillation recently placed on Xarelto, COPD, left bundle branch block, tricuspid valve regurg, mitral valve regurg, noninsulin-dependent type 2 diabetes mellitus, who presents to [facility] due to gross hematuria. Patient recently was here to [facility] in late July was diagnosed with A. fib with RVR, was placed on Xarelto, Cardizem. He was also found to have new onset heart failure, with severe diffuse hypokinesia, EF of 18%. Patient tells me that for the he was seen by cardiology, there were plans on cardiac catheterization, but he started to develop hematuria. For the last few days he developed gross hematuria, he was told to hold Xarelto. Denies any lightheadedness, dizziness, no nausea, no vomiting, no bloody or black stools. Due to his persistent hematuria, and at times inability to urinate he presented to the emergency room. He tells me that he has a history of BPH, at times can wake up 2-3 times a night to urinate. Review of Systems Const: Denies: fever(s) or chills Eyes: Denies: change in vision or blurry vision ENMT: Denies: nasal congestion Resp: Denies: dyspnea, productive cough, non-productive cough or wheezing GI: Denies: abdominal pain, nausea, vomiting or hematemesis : Denies: urinary frequency Musc: Denies: neck pain or back pain Skin/Breast: Denies: rash Neuro: Denies: headache(s) Medications/Allergies Home Medications Medication Instructions Recorded Confirmed Last Taken Type Fish Oil 1 cap PO BID 08/09/21 08/29/21 Unknown History glucosamine-chondroitin 250 mg-200 1 tab PO BID 08/09/21 08/29/21 Unknown History mg tablet (Osteo Bi-Flex) multivitamin 1 tab PO DAILY 08/09/21 08/29/21 Unknown History tiotropium bromide 1.25 2 inh INHALATION DAILY PRN #4 g 08/09/21 08/29/21 Unknown Rx mcg/actuation mist for inhalation cephalexin 500 mg capsule 500 mg PO BID #14 cap 08/24/21 08/29/21 Unknown Rx furosemide 40 mg tablet 40 mg PO BID #60 tab 08/24/21 08/29/21 Unknown Rx potassium chloride 20 mEq 20 meq PO DAILY #60 tab 08/24/21 08/29/21 Unknown Rx tablet,extended release carvedilol 6.25 mg tablet (Coreg) 6.25 mg PO BID #180 tab 08/25/21 08/29/21 Unknown Rx metformin 500 mg tablet 500 mg PO BID #180 tab 08/25/21 08/29/21 Unknown Rx rivaroxaban 20 mg tablet 20 mg PO DAILY 90 Days #90 tab 08/25/21 08/29/21 Unknown Rx sacubitril 24 mg-valsartan 26 mg 1 tab PO BID #180 tab 08/31/21 Unknown Rx tablet (Entresto) Allergies Allergy/AdvReac Type Severity Reaction Status Date / Time No Known Allergies Allergy Verified 08/29/21 15:19 PFSH Acute PFSH: Medical History Clot retention of urine Congestive heart failure COPD (chronic obstructive pulmonary disease) Diabetes mellitus LBBB (left bundle branch block) Mitral regurgitation New onset atrial fibrillation Tricuspid valve regurgitation Surgical History No significant past surgical history Family History Denies family history of Clotting disorder Chronic kidney disease (CKD) Cancer Social History Smoking and tobacco status: never smoked Alcohol intake: former Caregiver/support person: No Lives independently: Yes Household members: none Vitals/I&O/Wt Last Vital Signs Temp 97.4 F L 09/06/21 15:11 Pulse 83 09/06/21 15:30 Resp 16 09/06/21 15:30 BP 102/69 09/06/21 15:30 Pulse Ox 98 09/06/21 15:30 Weight last 48 hrs Weight 79.832 kg Physical Exam Const: COMMON NORMALS: no acute distress and patient oriented x3 HENMT: COMMON NORMALS: normocephalic HEAD & SCALP: normocephalic Neck/C-Spine: COMMON NORMALS: no JVD Resp: COMMON NORMALS: normal respiratory effort, No retractions, No use of accessory muscles and clear to auscultation bilaterally AUSCULTATION: clear to auscultation bilaterally Cardio: COMMON NORMALS: no JVD, regular rate, regular rhythm, S1 normal heart sound present and S2 normal heart sound present RATE: regular rate RHYTHM: abnormal rhythm HEART SOUNDS: S1 normal heart sound present and S2 normal heart sound present GI: COMMON NORMALS: Normal to inspection, nondistended, normoactive bowel sounds present, Soft to palpation, non-tender, No hepatosplenomegaly present, no masses and no bruits PALPATION: Yes Soft to palpation and Yes No hepatosplenomegaly present : OTHER: Blood at urethral meatus Extremity: COMMON NORMALS: capillary refill normal, no clubbing, cyanosis or edema, no calf tenderness and no pedal edema Neuro: COMMON NORMALS: patient oriented x3 Psych: COMMON NORMALS: mental status grossly normal Urinary Catheter Management: Chatman: Cath Placed During This Visit: yes Urinary Catheter Date of Insertion: 09/06/21 Urinary Catheter Time of Insertion: 16:30 Data : 09/06/21 16:00 09/06/21 16:00 A&P Assessment and plan (1) LBBB (left bundle branch block): Status: Acute (2) Tricuspid valve regurgitation: Status: Acute (3) Mitral regurgitation: Status: Acute (4) New onset atrial fibrillation: Status: Acute (5) COPD (chronic obstructive pulmonary disease): Status: Acute (6) Systolic CHF, chronic: Status: Acute (7) Hematuria: Status: Acute (8) Diabetes mellitus: Status: Acute (9) Left kidney mass: Status: Acute Plan Gross hematuria -Likely secondary underlying Xarelto use -Hold all blood thinners -ER tried to place Chatman catheter multiple times, however failed -Dr. Garcia will place Chatman catheter in OR -Continuous bladder irrigation -Full code -SCDs for DVT prophylaxis Atrial fibrillation -Continue Coreg -Hold anticoagulation -Telemetry monitoring Systolic CHF -EF of 18%, with diffuse hypokinesia of the left ventricle -Plans on outpatient cardiac catheterization -No complaints of chest pain -Continue Coreg, Entresto -Continue to monitor her fluid overload Severe mitral regurg Type 2 diabetes mellitus, low-dose sliding scale Attestations 2 Medical Necessity Statement*: Patient requires hospitalization, outpatient observation, for gross hematuria Coding Level of Care Code 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
--- NOTE | 2021-09-06 18:25 | P.ANESASSM_ITS ---
Pre-Anesthetic Assessment Height/Weight: Height 1.8 m Weight 79.832 kg Temp Pulse Resp BP Pulse Ox 97.4 F L 83 16 102/69 98 09/06/21 15:11 09/06/21 15:30 09/06/21 15:30 09/06/21 15:30 09/06/21 15:30 Preop Diagnosis: bladder clot Familial anesthetic complications: none Was Beta Venkata taken within 24 hours: Yes Was Clonidine taken within 24 hours: N/A Last intake: 09/06/2021 @ Social No alcohol and No tobacco Exam alert, oriented x 3, clear to auscultation bilaterally and regular rate & rhythm (Rate regular on monitor and by auscultation) Airway Submandibular: within normal limits Cervical ROM: within normal limits Mallampati: Class I Dentition: false History/ROS No significant complaints Pulmonary Chronic Obstructive Pulmonary Disease CV/HEM Atrial Fibrillation, Congestive Heart Failure and Murmur TR LBBB MR Afib on Xarelto stopped taking 09/02/21 METS > 4 Hematuria last week Clot retention GI None reported Metabolic Diabetes Mellitus [facility] None reported Neuropsych None reported Anesthetic Plan Anesthesia: Anesthesia Evaluation and General Other: We discussed risk and benefits of general anesthesia including PONV, sore throat (sometimes severe), corneal abrasion, positioning and peripheral nerve injuries, life threatening allergic reaction, post operative ICU admission requiring prolonged intubation, stroke, heart attack, , and rare incidences of recall. Patient consents to proceed with general anesthesia. Risk of > 500 ml blood loss (7ml/kg in children): No Other Pertinent Information 25 lb wt loss since last year Medications/Allergies Home Medications Medication Instructions Recorded Confirmed Last Taken Type Fish Oil 1 cap PO BID 08/09/21 08/29/21 Unknown History glucosamine-chondroitin 250 mg-200 1 tab PO BID 08/09/21 08/29/21 Unknown History mg tablet (Osteo Bi-Flex) multivitamin 1 tab PO DAILY 08/09/21 08/29/21 Unknown History tiotropium bromide 1.25 2 inh INHALATION DAILY PRN #4 g 08/09/21 08/29/21 Unknown Rx mcg/actuation mist for inhalation cephalexin 500 mg capsule 500 mg PO BID #14 cap 08/24/21 08/29/21 Unknown Rx furosemide 40 mg tablet 40 mg PO BID #60 tab 08/24/21 08/29/21 Unknown Rx potassium chloride 20 mEq 20 meq PO DAILY #60 tab 08/24/21 08/29/21 Unknown Rx tablet,extended release carvedilol 6.25 mg tablet (Coreg) 6.25 mg PO BID #180 tab 08/25/21 08/29/21 Unknown Rx metformin 500 mg tablet 500 mg PO BID #180 tab 08/25/21 08/29/21 Unknown Rx rivaroxaban 20 mg tablet 20 mg PO DAILY 90 Days #90 tab 08/25/21 08/29/21 Unknown Rx sacubitril 24 mg-valsartan 26 mg 1 tab PO BID #180 tab 08/31/21 Unknown Rx tablet (Entresto) Allergies Allergy/AdvReac Type Severity Reaction Status Date / Time No Known Allergies Allergy Verified 08/29/21 15:19 [facility] Anesthesia Medical History Clot retention of urine Congestive heart failure COPD (chronic obstructive pulmonary disease) Diabetes mellitus LBBB (left bundle branch block) Mitral regurgitation New onset atrial fibrillation Tricuspid valve regurgitation Surgical History No significant past surgical history Family History Denies family history of Clotting disorder Chronic kidney disease (CKD) Cancer Social History Smoking and tobacco status: never smoked Alcohol intake: former Caregiver/support person: No Lives independently: Yes Household members: none Data Anesthesia : 09/06/21 16:00 09/06/21 16:00 Short CBC 09/06/21 Range/Units 16:00 WBC 6.9 (4.0-10.0) 10^3/uL Hgb 13.0 (11.7-16.6) g/dL Hct 38.1 L (42.0-52.0) % MCV 89.0 (80-94) fl Plt Count 186 (130-400) 10^3/cmm Neut % (Auto) 60.0 % Neut # (Auto) 4.14 (1.8-7.7) 10^3/uL BMP 09/06/21 16:00 Sodium 140 Potassium 4.5 Chloride 102 Carbon Dioxide 27 BUN 14 Creatinine 0.7 Glucose 142 H Calcium 9.9 Liver Function 09/06/21 Range/Units 16:00 Total Bilirubin 1.0 (0.15-1.2) mg/dL AST 20 (0-40) U/L ALT 11 (0-41) U/L Alkaline Phosphatase 87 (40-130) IU/L Albumin 3.8 (3.5-5.2) g/dL Urine 09/06/21 Range/Units 16:17 Urine Color Red (Yellow) Urine Appearance Bloody A (CLEAR) Urine pH 6.5 (5-7) Ur Specific [place] 1.015 (1.005-1.030) Urine Protein 3+ H (Negative) Urine Glucose (UA) Norm (Normal) Urine Ketones Negative (Negative) Urine Nitrate Negative (Negative) Urine Bilirubin Neg (Negative) Ur Leukocyte Esterase Negative (Negative) Urine RBC >100 H (0-2) /hpf Urine WBC 5-10 H (0-5) /hpf Coags 09/06/21 16:00 PT 15.20 H INR 1.16 APTT 29.6 Cardiac Studies: Echocardiogram 08/09/21
[2021-09-06] MEDS: levofloxacin-dextrose 5% 250 MG/50 ML PREMIX 50 MG IV (19:17)
[2021-09-06] MEDS: lidocaine 2% Urojet 20 mL TOPICAL (20:00)
--- NOTE | 2021-09-06 20:33 | PM.OP ---
Operative Report Date of procedure: September 06, 2021 Pre-op diagnosis: Preop Diagnosis clot urinary retention Post-op diagnosis: 1. Clot urinary retention 2. Large invasive sessile bladder cancer, left anterolateral bladder wall Procedure done: 1. Cystoscopy, clot evacuation 2. Transurethral section of bladder tumor large Specimens removed/disposition: Bladder tumor Pathology: Bladder tumor chips Surgeon: Radha Reading Assistant: Kei Estimated blood loss: <50 cc Urine output: Not measured Complications: None Findings: Large bladder tumor identified after clearing the clots. Bladder tumors located in left lateral anterolateral bladder wall. Dense wide-based invasive appearing. Not completely resected. Bladder drained with three-way catheter and normal saline CBI initiated postoperatively Brief History: Mr. Mims is a delightful 75-year-old white male who I evaluated for the first time tonight to the emergency department for clot urinary retention of unclear etiology. CT scan demonstrated large amount of clot in the bladder and hyperdense area on the left lateral bladder wall Attempts at clearing the bladder of clots via Chatman catheter were unsuccessful and it was recommended he go to the operating room emergently for clot evacuation. Procedure: After emergent evaluation examination and obtaining of informed consent he was taken to the operating suite on 08/17/2021 where general anesthesia was administered without difficulty after appropriate timeout was performed, SCDs confirmed to be functioning, preoperative antibiotics administered, beta-peter protocol confirmed. Prepped and draped in usual sterile fashion in dorsolithotomy position paying careful attention to voiding pressure points Twenty-one Australian cystoscope with 30 degree lens was introduced into the urethra meatus and advanced into the bladder under videoscopy. There was an area of false passage but minimally so at the membranous urethra. The scope was easily manipulated beyond this point into the bladder where large amount of clot was identified. The scope was then exchanged with a twenty-three and then a twenty-five Australian sheath in order to further dilate the urethra. Clot was evacuated with an Ellik evacuator. It took multiple irrigations to completely clear the clot. The bladder was then inspected with both seventy and 30 degree lenses. He had a huge prostate gland but with a 70 degree lens the trigone could be evaluated. An unexpected finding of BLADDER CANCER on the left anterolateral bladder wall was identified and was actively bleeding. It was wide-based, invasive appearing, and extended a diameter >5 cm. The distal urethra was then calibrated with [place] sounds and easily accommodated thirty-two Australian distally. 2% lidocaine jelly was then instilled into the urethra then a twenty-five Australian continuous-flow resectoscope sheath with visual obturator in place was advanced into the bladder without difficulty negotiating the area of false passage without problem. The [employer] bipolar system was utilized with the super loop and 30 degree lens. The bladder tumor was then resected down to the level of the bladder wall with muscle visualized in several places. It appeared that the tumor extended fairly significantly into the bladder wall beyond that point. The button probe was then utilized to completely fulgurate the surface of resection. At the completion of the procedure there was no bleeding. All chips were evacuated from the bladder with multiple passes with the Message Bus evacuator. At the completion of the procedure hemostasis was confirmed and all chips were confirmed to be evacuated from the bladder. Bladder was drained with a twenty Australian three-way Chatman catheter with 10 cc placed in the balloon. Confirmation of function was made. Bladder was irrigated and efflux was clear. Normal saline CBI was then initiated with clear efflux. He tolerated the procedure well without complications and was awakened in the operating room and returned to the recovery room in stable condition. PLANS: 1. Transfer to [facility] on inpatient status 2. Medical management per hospitalist service. 3. Continue CBI with tapering as tolerated
--- NOTE | 2021-09-06 20:42 | ANE.PACU2 ---
Inpatient post-anesthesia follow up: Vital signs: Temperature 98.6 F Pulse Rate 81 Respiratory Rate 16 Blood Pressure 104/71 Pulse Oximetry 96 Oxygen Delivery Me thod Room Air Oxygen Flow Rate Fraction of Inspir ed Oxygen
[2021-09-06] MEDS: morphine 4 mg/mL SDV 1 mL 2 MG IVP (22:40)
[2021-09-06 23:25] LABS: Thyroid Stimulating Hormone 3.02 uIU/mL (0.27-4.20)
[2021-09-07] VITALS (11 sets, daily range): BP systolic 97–127; BP diastolic 61–97; PULSE 64–84; RESP 12–18; TEMP 36.4–37.2; O2SAT 95–98
[2021-09-07] MEDS: pantoprazole 40 mg SDV IVP ×2 (02:19→22:28)
[2021-09-07] MEDS: ketorolac 30 mg/mL INJ 15 MG IVP ×2 (02:19→22:50)
[2021-09-07 04:59] LABS: Basophils % 0.1 %; Eosinophils # 0.1 10^3/uL (0.0-0.8); Eosinophils % 0.9 %; Hematocrit 36.6 % (42.0-52.0); Hemoglobin 12.3 g/dL (11.7-16.6); Lymphocytes # 1.4 10^3/uL (0.8-4.8); Lymphocytes % 17.1 %; Mean Corpuscular HGB Conc 33.6 g/dL (30.0-36.0); Mean Corpuscular Hemoglobin 30.2 pg (28.0-34.0); Mean Corpuscular Volume 89.9 fl (80-94); Mean Platelet Volume 10.4 fL (7.4-10.4); Monocytes # 0.8 10^3/uL (0.2-0.9); Monocytes % 9.7 %; Neutrophils # 5.79 10^3/uL (1.8-7.7); Nucleated Red Blood Cells % 0 %; Platelet Count 159 10^3/cmm (130-400); Red Blood Count 4.07 10^6/uL (4.1-5.3); Red Cell Distribution Width 12.4 % (12.1-15.1); White Blood Count 8.1 10^3/uL (4.0-10.0)
[2021-09-07 05:32] LABS: NT Pro B Type Natriuretic Pept 3305 pg/mL (0-450); Procalcitonin 0.06 ng/mL (0-0.5)
[2021-09-07 05:43] LABS: Alanine Aminotransferase 9 U/L (0-41); Albumin Level 3.3 g/dL (3.5-5.2); Alkaline Phosphatase 74 IU/L (40-130); Anion Gap 15.1 (5-19); Aspartate Amino Transferase 14 U/L (0-40); Blood Urea Nitrogen 13 mg/dL (8-23); Calcium 8.8 mg/dL (8.5-10.5); Carbon Dioxide 24 mmol/L (22-29); Chloride 105 mmol/L (98-107); Globulin 2.6 g/dL (1.3-4.6); Glucose 112 mg/dL (65-115); Magnesium 1.9 mg/dL (1.7-2.3); Osmolality Calculated 291 mOsm/kg (285-295); Phosphorus 3.3 mg/dL (2.5-4.5); Potassium 4.1 mmol/L (3.5-5.1); Sodium 140 mmol/L (136-145); Total Bilirubin 0.9 mg/dL (0.15-1.2); Total Protein 5.9 g/dL (6.6-8.7)
[2021-09-07 06:45] LABS: Glucose Point of Care 104 mg/dL (70-110)
--- NOTE | 2021-09-07 06:54 | PC.PHAR ---
Addendum entered by Julee Bai 09/07/21 08:34: CALLED [facility] STATES THEY DONT HAVE RX FOR ENTRESTO STATES BELEN CALLED AND ASKED WHAT THE 340B CAM WOULD BE STATES CAM WOULD BE 267.90 DORA STATES THE LAST TIME SHE TALKED TO THE PT THE PT STATES HE COULDNT AFFORD THAT AT THIS TIME-UNSURE IF THE PT HAS TRIED TO GET FROM THE PT SUPPORT PROGRAM THROUGH ENTRESTO Original Note: pt states he takes care of his own medications-pt states he didnt get his entresto pt states it was going to cost him $3,700.00-pt states he stop taking his rivaroxaban on fri 09/02/21-pt states his januvia ad dilt-xr 120mg both last filled 08/09/21 were both dced-notes are made in the pharmacy comments
--- NOTE | 2021-09-07 08:43 | P.PN_ITS ---
Subjective Subjective: Postop day #1 clot evacuation and transurethral section of bladder tumor. Feeling well. No chest pain. Urine has remained clear with light CBI. We had a long discussion regarding the intraoperative findings and the likelihood of muscle invasive high-grade bladder cancer. Discussed work-up and treatment options in a cursory fashion. We will focus on routine post TURBT bladder management today see if we can get the catheter out void adequately and hopefully discharge. His son was in the room and was participating in the conversation with good questions. Plan for 6 bottle void Vitals/I&O/Wt Last Vital Signs Temp 97.7 F 09/07/21 07:41 Pulse 83 09/07/21 07:53 Resp 18 09/07/21 07:53 BP 107/97 09/07/21 07:41 Pulse Ox 95 09/07/21 07:53 09/06/21 09/07/21 09/07/21 22:59 06:59 14:59 Intake Total 450 / 450 Output Total 0 / 0 0 / 0 Balance 450 / 450 0 / 450 Weight last 48 hrs Weight 176 lb Physical Exam Const: COMMON NORMALS: no acute distress and patient oriented x3 HENMT: COMMON NORMALS: normocephalic HEAD & SCALP: normocephalic GI: COMMON NORMALS: Normal to inspection, nondistended, normoactive bowel sounds present, non-tender and no masses : OTHER: Urine is clear urine is clear with minimal CBI. Extremity: NARRATIVE EXTREMITY EXAM: Normal range of motion. No significant edema Neuro: COMMON NORMALS: patient oriented x3 Psych: COMMON NORMALS: mental status grossly normal, Normal thought process present and cooperative THOUGHT PROCESS: Normal thought process present Urinary Catheter Management: Chatman: Cath Placed During This Visit: yes Reason for Continuing Indwelling Catheter: Other Urinary Catheter Date of Insertion: 09/06/21 Urinary Catheter Time of Insertion: 20:30 Data : 09/07/21 04:50 09/07/21 04:50 A&P Assessment and plan (1) Cancer of lateral wall of urinary bladder: Appearance of high-grade. Resected down to below the mucosal level. Reviewed options for work-up and treatment Status: Acute (2) Clot retention of urine: Status: Resolved (3) Acquired complex renal cyst: Patient will be received to further stage TCCA of the bladder. This will also facilitate further evaluation of the complex renal cyst. I think the cyst is low risk at this point. Status: Acute Attestations Medical Necessity Statement*: Status post emergent coincidental finding of TCC of the bladder. Coding Level of Care Code Acute Glue Size Machine Operator for Guero Fwd Diagnoses Cancer of lateral wall of urinary bladder C67.2 Clot retention of urine R33.8 Acquired complex renal cyst N28.1
[2021-09-07] MEDS: sacubitril/valsartan 24-26 mg Tablet 1 EACH PO ×2 (09:23→17:10)
[2021-09-07] MEDS: carvedilol 6.25 mg Tablet PO ×2 (09:24→17:11)
[2021-09-07] MEDS: FUROsemide 40 mg Tablet PO ×2 (09:24→17:11)
[2021-09-07] MEDS: potassium chloride ER 20 mEq Tablet PO (09:24)
--- NOTE | 2021-09-07 10:09 | PC.CHAP ---
Pastoral Care Encounter/Spiritual Assessment Type of Contact [] Declined environmental law professor visit [] Patient/Family/Request visit [] Outpatient visit [] Follow-up visit [] Physician referral [] Code/Alert [x] Routine visit [] Staff referral [] Actively dying [] Patient sleeping [] Family support [] [] Out of room [] Palliative care [] [x] Receiving care in room [] Pre-surgical visit [] Trauma [] Long length of stay [] ICU visit [] Other: Relational/Emotional Strength [] Patient feels connected with others/family/visitors/staff [] Distress [] Loneliness/isolation [] Abandonment Spirituality of Patient [] Person of Gloria [] Attends Gnosticist of their Gloria [] Believes in Prayer [] Reads Bible or Hindu materials [] There are Spiritual issues to be addressed Corporate Treasury Analyst Interventions [] Prayer [] Active listening [] Non-anxious presence [] Spiritual/emotional support [] Crisis/trauma care [] Spiritual counseling [] Bereavement support [] Provided bereavement packet [] Provided Bible/devotional materials [] Provided toy/stuffed animal, coloring book to patient or family member [] Provided Communion [] Anointing/[place] [] Salvation [] Completed spiritual assessment [] Other: Impact on Illness or Injury [] Angry [] Fearful [] Anxious [] Often cries [] Exhaustion [] Unable to work [] Unable to attend christian [] Unable to walk/stand [] Unable to read [] Unable to drive [] Unable to eat/drink [] Unable to sleep [] Unable to be with family [] Patient intubated [] Other: Summary Time spent with patient
--- NOTE | 2021-09-07 13:40 | PC.NURSE ---
Dr. Garcia notified that patient hasn't voided since catheter dc'd at 0940. Bladder scan showed 200ml and orders received to place [address].
[2021-09-07] MEDS: morphine 4 mg/mL SDV 1 mL 2 MG IVP ×2 (14:14→19:59)
--- NOTE | 2021-09-07 16:03 | PM.PN ---
Subjective Subjective: Patient was seen this morning, son is at bedside, he tells that he was hungry all this morning, and he got his breakfast finally, no abdominal pain, he tells me he does not want to take Xarelto anymore, discussed risks and benefits of Xarelto, significant benefit is decreasing the risk of CVA given his A. fib, however he he has suffered complications from Xarelto hence his hospital admission for hematuria for now we will hold Xarelto and readdress its need on a day by day basis, but the plan for now is to hold at least until he is seen as outpatient Vitals/I&O/Wt Last Vital Signs Temp 97.6 F 09/07/21 14:30 Pulse 64 09/07/21 14:30 Resp 16 09/07/21 14:30 BP 103/66 09/07/21 14:30 Pulse Ox 98 09/07/21 14:30 09/07/21 09/07/21 09/07/21 06:59 14:59 22:59 Intake Total 714 / 714 Output Total 0 / 0 Balance 0 / 450 714 / 714 Weight last 48 hrs Weight 79.832 kg Physical Exam Const: COMMON NORMALS: no acute distress and patient oriented x3 Resp: COMMON NORMALS: normal respiratory effort, No retractions, No use of accessory muscles and clear to auscultation bilaterally AUSCULTATION: clear to auscultation bilaterally Cardio: COMMON NORMALS: regular rate, regular rhythm, S1 normal heart sound present and S2 normal heart sound present RATE: regular rate RHYTHM: regular rhythm HEART SOUNDS: S1 normal heart sound present and S2 normal heart sound present GI: COMMON NORMALS: Normal to inspection, nondistended, normoactive bowel sounds present, Soft to palpation, non-tender and No hepatosplenomegaly present PALPATION: Yes Soft to palpation and Yes No hepatosplenomegaly present Extremity: COMMON NORMALS: no pedal edema Neuro: COMMON NORMALS: patient oriented x3 Urinary Catheter Management: Chatman: Cath Placed During This Visit: yes, but has since been removed by the nurse Reason for Continuing Indwelling Catheter: Decision to DC Catheter Urinary Catheter Date of Insertion: 09/06/21 Urinary Catheter Time of Insertion: 20:30 Date Urinary Catheter Removed: 09/07/21 Time Urinary Catheter Discontinued: 09:42 Data : 09/07/21 04:50 09/07/21 04:50 A&P Assessment and plan (1) LBBB (left bundle branch block): Status: Acute (2) Tricuspid valve regurgitation: Status: Acute (3) Mitral regurgitation: Status: Acute (4) New onset atrial fibrillation: Status: Acute (5) COPD (chronic obstructive pulmonary disease): Status: Acute (6) Systolic CHF, chronic: Status: Acute (7) Hematuria: Status: Acute (8) Diabetes mellitus: Status: Acute (9) Left kidney mass: Status: Deleted Plan Gross hematuria -Likely secondary underlying Xarelto use -Underlying cancer of lateral wall of urinary bladder status post resection -Hold all blood thinners -Chatman catheter currently in place -Dr. Garica on consult -Has received continuous bladder irrigation overnight -Full code -SCDs for DVT prophylaxis Atrial fibrillation -Continue Coreg -Hold anticoagulation -Telemetry monitoring Systolic CHF -EF of 18%, with diffuse hypokinesia of the left ventricle -Plans on outpatient cardiac catheterization -No complaints of chest pain -Continue Coreg, Entresto -Continue to monitor her fluid overload Severe mitral regurg Type 2 diabetes mellitus, low-dose sliding scale Attestations Medical Necessity Statement*: Patient requires hospitalization for hematuria Coding Level of Care Code Acute Visitor Services Coordinator for Chg Fwd Diagnoses LBBB (left bundle branch block) I44.7 Tricuspid valve regurgitation I07.1 Mitral regurgitation I34.0 New onset atrial fibrillation I48.91 COPD (chronic obstructive pulmonary disease) J44.9 Systolic CHF, chronic I50.22 Hematuria R31.9 Diabetes mellitus E11.9 Left kidney mass N28.89
[2021-09-07 17:06] LABS: Glucose Point of Care 261 mg/dL (70-110)
[2021-09-07] MEDS: acetaminophen 325 mg Tablet 650 MG PO (19:58)
[2021-09-08] VITALS (11 sets, daily range): BP systolic 95–107; BP diastolic 54–68; PULSE 68–88; RESP 14–20; TEMP 36.3–36.9; O2SAT 93–99
[2021-09-08] MEDS: morphine 4 mg/mL SDV 1 mL 2 MG IVP ×2 (00:59→06:00)
[2021-09-08 02:56] LABS: Basophils % 0.1 %; Eosinophils # 0.1 10^3/uL (0.0-0.8); Hematocrit 37.6 % (42.0-52.0); Hemoglobin 12.7 g/dL (11.7-16.6); Lymphocytes # 2.1 10^3/uL (0.8-4.8); Mean Corpuscular HGB Conc 33.8 g/dL (30.0-36.0); Mean Corpuscular Hemoglobin 30.5 pg (28.0-34.0); Mean Corpuscular Volume 90.4 fl (80-94); Mean Platelet Volume 10.1 fL (7.4-10.4); Monocytes # 0.9 10^3/uL (0.2-0.9); Monocytes % 9.8 %; Neutrophils # 6.04 10^3/uL (1.8-7.7); Neutrophils % 65.7 %; Nucleated Red Blood Cells % 0 %; Platelet Count 155 10^3/cmm (130-400); Red Blood Count 4.16 10^6/uL (4.1-5.3); Red Cell Distribution Width 12.3 % (12.1-15.1); White Blood Count 9.2 10^3/uL (4.0-10.0)
[2021-09-08 03:05] LABS: INR 1.12 (0.8-1.2)
[2021-09-08 03:15] LABS: Alanine Aminotransferase 7 U/L (0-41); Albumin Level 3.2 g/dL (3.5-5.2); Alkaline Phosphatase 78 IU/L (40-130); Anion Gap 11.7 (5-19); Aspartate Amino Transferase 13 U/L (0-40); Blood Urea Nitrogen 16 mg/dL (8-23); Calcium 8.8 mg/dL (8.5-10.5); Carbon Dioxide 26 mmol/L (22-29); Chloride 101 mmol/L (98-107); Globulin 3.1 g/dL (1.3-4.6); Glucose 138 mg/dL (65-115); Magnesium 1.7 mg/dL (1.7-2.3); Osmolality Calculated 283 mOsm/kg (285-295); Phosphorus 2.8 mg/dL (2.5-4.5); Potassium 3.7 mmol/L (3.5-5.1); Sodium 135 mmol/L (136-145); Total Bilirubin 0.9 mg/dL (0.15-1.2); Total Protein 6.3 g/dL (6.6-8.7)
[2021-09-08 03:27] LABS: NT Pro B Type Natriuretic Pept 2662 pg/mL (0-450); Procalcitonin 0.08 ng/mL (0-0.5)
[2021-09-08 06:32] LABS: Glucose Point of Care 138 mg/dL (70-110)
--- NOTE | 2021-09-08 09:49 | PC.CHAP ---
Pastoral Care Encounter/Spiritual Assessment Type of Contact [] Declined soup mixer visit [] Patient/Family/Request visit [] Outpatient visit [] Follow-up visit [] Physician referral [] Code/Alert [x] Routine visit [] Staff referral [] Actively dying [] Patient sleeping [] Family support [] [] Out of room [] Palliative care [] [] Receiving care in room [] Pre-surgical visit [] Trauma [] Long length of stay [] ICU visit [] Other: Relational/Emotional Strength [x] Patient feels connected with others/family/visitors/staff [] Distress [] Loneliness/isolation [] Abandonment Spirituality of Patient [x] Person of Gloria [] Attends Jainism of their Gloria [x] Believes in Prayer [] Reads Bible or Cheondoism materials [] There are Spiritual issues to be addressed Quality Assurance Calibrator Interventions [x] Prayer [] Active listening [] Non-anxious presence [] Spiritual/emotional support [] Crisis/trauma care [] Spiritual counseling [] Bereavement support [] Provided bereavement packet [] Provided Bible/devotional materials [] Provided toy/stuffed animal, coloring book to patient or family member [] Provided Communion [] Anointing/[place] [] Salvation [x] Completed spiritual assessment [] Other: Impact on Illness or Injury [] Angry [] Fearful [] Anxious [] Often cries [] Exhaustion [] Unable to work [] Unable to attend temple [] Unable to walk/stand [] Unable to read [] Unable to drive [] Unable to eat/drink [] Unable to sleep [] Unable to be with family [] Patient intubated [] Other: Summary Time spent with patient 5 min
[2021-09-08] MEDS: potassium chloride ER 20 mEq Tablet PO (10:19)
[2021-09-08] MEDS: sacubitril/valsartan 24-26 mg Tablet 1 EACH PO ×2 (10:19→17:54)
[2021-09-08] MEDS: FUROsemide 40 mg Tablet PO ×2 (10:19→17:54)
[2021-09-08] MEDS: carvedilol 6.25 mg Tablet PO ×2 (10:19→17:54)
--- NOTE | 2021-09-08 10:19 | PM.PN ---
Subjective Subjective: Urology follow-up: Postop day #2, clot evacuation and TURBT large. Failed to void with voiding trial on postop day #1. Catheter replaced. No problems with bleeding since then. Has not required aggressive manual or continuous bladder irrigation. Has had some transient elevated blood sugars. Denies any chest pain or shortness of breath. Urine is still clearing. Cath appears to be functioning well. Vitals/I&O/Wt Last Vital Signs Temp 98.4 F 09/08/21 04:00 Pulse 76 09/08/21 09:20 Resp 18 09/08/21 09:20 BP 107/65 09/08/21 04:00 Pulse Ox 95 09/08/21 09:20 09/07/21 09/08/21 09/08/21 22:59 06:59 14:59 Intake Total 200 / 914 Output Total 1200 / 1200 350 / 1550 Balance -1200 / -486 -150 / -636 Weight last 48 hrs Weight 176 lb Physical Exam Const: COMMON NORMALS: no acute distress and healthy appearing Neck/C-Spine: OTHER: Good range of motion Resp: COMMON NORMALS: normal respiratory effort OTHER: No audible wheezing GI: OTHER: Soft nontender no palpable masses. Bladder nondistended : OTHER: Urine straw to pink. Catheter functioning well. Neuro: OTHER: No focal deficits Psych: COMMON NORMALS: mental status grossly normal, cooperative and speech normal SPEECH: Yes normal speech Urinary Catheter Management: Chatman: Cath Placed During This Visit: yes, but has since been removed by the nurse Reason for Continuing Indwelling Catheter: Acute Urinary Retention or Obstruction Urinary Catheter Date of Insertion: 09/06/21 Urinary Catheter Time of Insertion: 20:30 Date Urinary Catheter Removed: 09/07/21 Time Urinary Catheter Discontinued: 09:42 Data : 09/09/21 05:42 09/09/21 05:42 Micro: Microbiology 09/06/21 16:17 Urine Culture - Preliminary Urine,Clean Catch A&P Assessment and plan (1) Cancer of lateral wall of urinary bladder: Status: Acute (2) Hematuria: Status: Acute (3) Acquired complex renal cyst: Status: Acute (4) Diabetes mellitus: Status: Acute Plan Given the treacherous road and weather conditions I do not think he would be able to get home safely. Attestations Medical Necessity Statement*: Recovering from clot retention and TURBT. Coding Level of Care Code Acute Roll Form Operator for Chg Fwd Exam Expanded Problem Focused Diagnoses Acquired complex renal cyst N28.1 Cancer of lateral wall of urinary bladder C67.2 Hematuria R31.9 Diabetes mellitus E11.9
--- NOTE | 2021-09-08 11:08 | PM.PN ---
Subjective Subjective: Patient was seen this morning, continues to have plain around catheter site, does complain of left ankle pain Vitals/I&O/Wt Last Vital Signs Temp 97.5 F L 09/08/21 08:00 Pulse 76 09/08/21 09:20 Resp 18 09/08/21 09:20 BP 101/64 09/08/21 08:00 Pulse Ox 95 09/08/21 09:20 09/07/21 09/08/21 09/08/21 22:59 06:59 14:59 Intake Total 200 / 914 Output Total 1200 / 1200 350 / 1550 Balance -1200 / -486 -150 / -636 Weight last 48 hrs Weight 79.832 kg Physical Exam Const: COMMON NORMALS: no acute distress and patient oriented x3 Resp: COMMON NORMALS: normal respiratory effort, No retractions, No use of accessory muscles and clear to auscultation bilaterally AUSCULTATION: clear to auscultation bilaterally GI: COMMON NORMALS: Normal to inspection, nondistended, normoactive bowel sounds present, Soft to palpation, non-tender and No hepatosplenomegaly present PALPATION: Yes Soft to palpation and Yes No hepatosplenomegaly present Extremity: COMMON NORMALS: no pedal edema Neuro: COMMON NORMALS: patient oriented x3 Psych: COMMON NORMALS: mental status grossly normal Urinary Catheter Management: Chatman: Cath Placed During This Visit: yes, but has since been removed by the nurse Reason for Continuing Indwelling Catheter: Acute Urinary Retention or Obstruction Urinary Catheter Date of Insertion: 09/06/21 Urinary Catheter Time of Insertion: 20:30 Date Urinary Catheter Removed: 09/07/21 Time Urinary Catheter Discontinued: 09:42 Data : 09/08/21 02:45 09/08/21 02:45 Micro: Microbiology 09/06/21 16:17 Urine Culture - Preliminary Urine,Clean Catch A&P Assessment and plan (1) LBBB (left bundle branch block): Status: Acute (2) Tricuspid valve regurgitation: Status: Acute (3) Mitral regurgitation: Status: Acute (4) New onset atrial fibrillation: Status: Acute (5) COPD (chronic obstructive pulmonary disease): Status: Acute (6) Systolic CHF, chronic: Status: Acute (7) Hematuria: Status: Acute (8) Diabetes mellitus: Status: Acute (9) Left kidney mass: Status: Deleted Plan Gross hematuria -Likely secondary underlying Xarelto use -Underlying cancer of lateral wall of urinary bladder status post resection -Hold all blood thinners -Chatman catheter currently in place -Dr. Garcia on consult -Has received continuous bladder irrigation overnight -Full code -SCDs for DVT prophylaxis Atrial fibrillation -Continue Coreg -Hold anticoagulation -Telemetry monitoring Systolic CHF -EF of 18%, with diffuse hypokinesia of the left ventricle -Plans on outpatient cardiac catheterization -No complaints of chest pain -Continue Coreg, Entresto -Continue to monitor her fluid overload Severe mitral regurg Type 2 diabetes mellitus, low-dose sliding scale Left ankle pain, musculoskeletal Attestations Medical Necessity Statement*: Patient requires hospitalization for hematuria Coding Level of Care Code Acute Technical Sales Associate for g Fwd Diagnoses LBBB (left bundle branch block) I44.7 Tricuspid valve regurgitation I07.1 Mitral regurgitation I34.0 New onset atrial fibrillation I48.91 COPD (chronic obstructive pulmonary disease) J44.9 Systolic CHF, chronic I50.22 Hematuria R31.9 Diabetes mellitus E11.9 Left kidney mass N28.89
[2021-09-08] MEDS: tamsulosin 0.4 mg Capsule PO (11:17)
[2021-09-08 11:38] LABS: Glucose Point of Care 273 mg/dL (70-110)
[2021-09-08] MEDS: insulin lispro 100 unit/1 mL SUBCUT (12:05)
[2021-09-08] MEDS: oxyCODONE-APAP 5-325 mg Tablet 1 TAB PO ×2 (12:09→23:43)
[2021-09-08 17:31] LABS: Glucose Point of Care 132 mg/dL (70-110)
[2021-09-08] MEDS: acetaminophen 325 mg Tablet 650 MG PO (19:53)
[2021-09-08 21:12] LABS: Glucose Point of Care 217 mg/dL (70-110)
[2021-09-08] MEDS: pantoprazole 40 mg SDV IVP (21:51)
[2021-09-09] VITALS: BP 117/76; PULSE 87; RESP 17; TEMP 36.8; O2SAT 99
[2021-09-09 04:00] VITALS: BP 112/70; PULSE 82; RESP 17; TEMP 36.7; O2SAT 97
[2021-09-09 05:50] LABS: Basophils % 0.1 %; Eosinophils # 0.1 10^3/uL (0.0-0.8); Eosinophils % 1.9 %; Hemoglobin 13.5 g/dL (11.7-16.6); Lymphocytes # 1.7 10^3/uL (0.8-4.8); Lymphocytes % 24.4 %; Mean Corpuscular HGB Conc 34.6 g/dL (30.0-36.0); Mean Corpuscular Hemoglobin 30.2 pg (28.0-34.0); Mean Corpuscular Volume 87.2 fl (80-94); Mean Platelet Volume 9.7 fL (7.4-10.4); Monocytes # 0.7 10^3/uL (0.2-0.9); Monocytes % 10.1 %; Neutrophils # 4.42 10^3/uL (1.8-7.7); Neutrophils % 62.9 %; Nucleated Red Blood Cells % 0 %; Platelet Count 174 10^3/cmm (130-400); Red Blood Count 4.47 10^6/uL (4.1-5.3); Red Cell Distribution Width 12.2 % (12.1-15.1)
[2021-09-09 06:02] LABS: INR 1.11 (0.8-1.2)
[2021-09-09 06:14] LABS: Alanine Aminotransferase 7 U/L (0-41); Albumin Level 3.1 g/dL (3.5-5.2); Alkaline Phosphatase 76 IU/L (40-130); Anion Gap 12.8 (5-19); Aspartate Amino Transferase 15 U/L (0-40); Blood Urea Nitrogen 14 mg/dL (8-23); Calcium 8.6 mg/dL (8.5-10.5); Carbon Dioxide 26 mmol/L (22-29); Chloride 97 mmol/L (98-107); Globulin 3.3 g/dL (1.3-4.6); Glucose 142 mg/dL (65-115); Magnesium 1.7 mg/dL (1.7-2.3); Osmolality Calculated 277 mOsm/kg (285-295); Phosphorus 2.5 mg/dL (2.5-4.5); Potassium 3.8 mmol/L (3.5-5.1); Sodium 132 mmol/L (136-145); Total Bilirubin 1.1 mg/dL (0.15-1.2); Total Protein 6.4 g/dL (6.6-8.7)
[2021-09-09 06:18] LABS: NT Pro B Type Natriuretic Pept 2186 pg/mL (0-450); Procalcitonin 0.07 ng/mL (0-0.5)
[2021-09-09 06:39] LABS: Glucose Point of Care 133 mg/dL (70-110)
[2021-09-09] MEDS: acetaminophen 325 mg Tablet 650 MG PO ×2 (06:39→13:04)
[2021-09-09 07:10] VITALS: BP 119/71; PULSE 86; RESP 17; TEMP 37.1; O2SAT 97
--- NOTE | 2021-09-09 07:16 | PM.PN ---
Subjective Subjective: Urology follow-up: Urine has remained clear off of CBI now for 24 hours. No significant catheter difficulties through the night. I think he is ready for discharge. Final path, CT scan abdomen and pelvis with and without contrast, voiding trial will be conducted next week. I recommended holding the Xarelto until further healing due to significant risk of bleeding. Medications: Reviewed: Yes Vitals/I&O/Wt Last Vital Signs Temp 98.7 F 09/09/21 07:10 Pulse 86 09/09/21 07:10 Resp 17 09/09/21 07:10 BP 119/71 09/09/21 07:10 Pulse Ox 97 09/09/21 07:10 09/08/21 09/09/21 09/09/21 22:59 06:59 14:59 Intake Total 240 / 673 Output Total 700 / 700 1200 / 1900 Balance -460 / -27 -1200 / -1227 Physical Exam Narrative: Alert and oriented no acute distress. HEENT atraumatic normocephalic neck good range of motion Abdomen soft nontender without palpable masses shows clear urine draining the catheter. Good catheter function. Psychiatric: Normal mental status. Urinary Catheter Management: Chatman: Cath Placed During This Visit: yes, but has since been removed by the nurse Reason for Continuing Indwelling Catheter: Other Urinary Catheter Date of Insertion: 09/06/21 Urinary Catheter Time of Insertion: 20:30 Date Urinary Catheter Removed: 09/07/21 Time Urinary Catheter Discontinued: 09:42 Data : 09/09/21 05:42 09/09/21 05:42 Micro: Microbiology 09/06/21 16:17 Urine Culture - Preliminary Urine,Clean Catch A&P Assessment and plan (1) Cancer of lateral wall of urinary bladder: Final path pending. Status: Acute (2) Acquired complex renal cyst: We will review this more carefully with contrasted CT scan on follow-up. Overall this appears to be low risk at this time. Anticipate that serial imaging will be recommended. Status: Acute (3) Clot retention of urine: Resolved after clot evacuation under anesthesia. Status: Resolved (4) Hematuria: Resolved after clot evacuation under anesthesia and TURBT. Status: Resolved (5) Atrial fibrillation: Status: Acute (6) Congestive heart failure: Status: Acute Qualifiers: Heart failure chronicity: acute Attestations Medical Necessity Statement*: Seems to be stable from a urologic perspective. I think he is a reasonable candidate for discharge today. Coding Level of Care Code Acute Packing Clerk for Chg Fwd Diagnoses Cancer of lateral wall of urinary bladder C67.2 Acquired complex renal cyst N28.1 Clot retention of urine R33.8 Hematuria R31.9 Atrial fibrillation I48.91 Congestive heart failure I50.9 Heart failure chronicity: acute
[2021-09-09 08:15] VITALS: PULSE 62; RESP 18; O2SAT 95
[2021-09-09] MEDS: sacubitril/valsartan 24-26 mg Tablet 1 EACH PO (09:43)
[2021-09-09] MEDS: potassium chloride ER 20 mEq Tablet PO (09:44)
[2021-09-09] MEDS: FUROsemide 40 mg Tablet PO (09:44)
[2021-09-09] MEDS: tamsulosin 0.4 mg Capsule PO (09:44)
[2021-09-09] MEDS: carvedilol 6.25 mg Tablet PO (09:45)
--- NOTE | 2021-09-09 09:57 | P.DS_ITS ---
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: Status: Acute (2) Acquired complex renal cyst: Status: Acute (3) Clot retention of urine: Status: Resolved (4) Hematuria: Status: Resolved (5) Atrial fibrillation: Status: Acute (6) Congestive heart failure: Status: Acute Qualifiers: Heart failure chronicity: acute Reason for Visit Reason for Visit: Clot retention Brief History: Ramon Mims is a 75 year old male with a past medical history of congestive heart failure, new onset atrial fibrillation recently placed on Xarelto, COPD, left bundle branch block, tricuspid valve regurg, mitral valve regurg, noninsulin-dependent type 2 diabetes mellitus, who presents to [facility] due to gross hematuria. Patient was admitted to [facility] for gross hematuria, likely secondary Xarelto, underlying lesion of lateral wall of urinary bladder status post resection, blood thinners were held, patient had a Chatman catheter placed by Dr. Garcia, intermittently received CBI. Patient failed voiding trials, will be discharged on Chatman catheter with close follow-up with Dr. Garcia as outp atient. On discharge, no recurrent bleeding from Chatman catheter site. For his atrial fibrillation, anticoagulation for now has been discontinued, discussed risks and benefits of holding anticoagulation, risks of strokes, he voiced understanding, all questions answered, agreed to hold for now. Follow-up with cardiology as outpatient. For systolic CHF EF of 18%, follow-up with cardiology for plans of outpatient cardiac catheterization. He was also found to have a left renal lesion, follow-up with Dr. Garcia as outpatient. Discharged on short supply of Percocet for Chatman catheter related pain, to be used sparingly, do not drive or operate heavy machinery while taking medication Hospital Course Hospital Course Urologic information: He was admitted directly to the operating room through the emergency department on 09/06/2021. Discovered in clot retention. Could not clear with routine manual irrigation. Intraoperatively he was found to have a large bladder tumor on the left anterolateral bladder wall and this was resected down to the base. 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 Postoperatively he did well. He was maintained on CBI with gradual clearing of the urine. 1 failed voiding trial and the catheter was replaced. By the morning of 09/09/2021 he was deemed safe for discharge and was discharged in stable condition. Hospitalist service managed his medical problems during the hospital. The patient takes Xarelto for atrial fibrillation. This is being held currently due to his high risk of recurrent bleeding. Reinitiation will be determined on follow-up visit. Plan will be to see him back in my office next week with a CT scan of abdomen pelvis with and without contrast, voiding trial. New urologic medications include TAMSULOSIN 0.4 mg p.o. nightly. Physical Exam Const: COMMON NORMALS: no acute distress and patient oriented x3 Resp: COMMON NORMALS: normal respiratory effort, No retractions, No use of accessory muscles and clear to auscultation bilaterally AUSCULTATION: clear to auscultation bilaterally Cardio: COMMON NORMALS: regular rate, regular rhythm, S1 normal heart sound present and S2 normal heart sound present RATE: regular rate RHYTHM: regular rhythm HEART SOUNDS: S1 normal heart sound present and S2 normal heart sound present GI: COMMON NORMALS: Normal to inspection, nondistended, normoactive bowel sounds present, Soft to palpation, non-tender and No hepatosplenomegaly present PALPATION: Yes Soft to palpation and Yes No hepatosplenomegaly present Extremity: COMMON NORMALS: no pedal edema Neuro: COMMON NORMALS: patient oriented x3 Psych: COMMON NORMALS: mental status grossly normal Urinary Catheter Management: Chatman: Cath Placed During This Visit: yes, but has since been removed by the nurse Reason for Continuing Indwelling Catheter: Other Urinary Catheter Date of Insertion: 09/06/21 Urinary Catheter Time of Insertion: 20:30 Date Urinary Catheter Removed: 09/07/21 Time Urinary Catheter Discontinued: 09:42 Discharge Data Studies Completed and Pending Completed Studies During Hospitalization Category Date Time Status CT kidney stone [id number] Stat Cat Scan 09/06/21 15:29 Completed Pathology: Surgical [PTH] Routine Pth 09/06/21 21:06 Completed Pending at discharge Category Date Time Status Complete Blood Count w/Auto AM LABS Lab 09/10/21 04:00 Ordered Radiology Impressions Abdomen/Pelvis CT 09/06/21 15:29 IMPRESSION: 1. Hyperdense blood clot in the urinary bladder. A superimposed urinary bladder lesion is not excluded. Follow-up with cystoscopy is recommended. 2. 6.7 cm complex septated cystic and calcified lesion in the inferior left kidney. Recommend non-emergent MRI without and with contrast or non-emergent CT without and with contrast. MRI is preferred for masses under 1.5 cm. 3. Inhomogenous enlarged prostate. 4. Cholelithiasis with a probable 2 mm stone in the cystic duct. No definite evidence for cholecystitis. COMMENTS: Consistent with the [employer]'s Incidental Findings Committee white paper (J Am Clair Radiol 2018): Any incidental renal lesion less than 1 cm or classified as too small to characterize, or any incidental cystic renal lesion characterized as simple-appearing, is likely benign. No follow-up imaging is recommended for these lesions per consensus recommendations based on imaging criteria. Laboratory Results WBC 7.0 10^3/uL (4.0-10.0) 09/09/21 05:42 RBC 4.47 10^6/uL (4.1-5.3) 09/09/21 05:42 Hgb 13.5 g/dL (11.7-16.6) 09/09/21 05:42 Hct 39.0 % (42.0-52.0) L 09/09/21 05:42 MCV 87.2 fl (80-94) 09/09/21 05:42 MCH 30.2 pg (28.0-34.0) 09/09/21 05:42 MCHC 34.6 g/dL (30.0-36.0) 09/09/21 05:42 RDW 12.2 % (12.1-15.1) 09/09/21 05:42 Plt Count 174 10^3/cmm (130-400) 09/09/21 05:42 MPV 9.7 fL (7.4-10.4) 09/09/21 05:42 Neut % (Auto) 62.9 % 09/09/21 05:42 Lymph % (Auto) 24.4 % 09/09/21 05:42 Lyman % (Auto) 10.1 % 09/09/21 05:42 Eos % (Auto) 1.9 % 09/09/21 05:42 Baso % (Auto) 0.1 % 09/09/21 05:42 Neut # (Auto) 4.42 10^3/uL (1.8-7.7) 09/09/21 05:42 Lymph # (Auto) 1.7 10^3/uL (0.8-4.8) 09/09/21 05:42 Lyman # (Auto) 0.7 10^3/uL (0.2-0.9) 09/09/21 05:42 Eos # (Auto) 0.1 10^3/uL (0.0-0.8) 09/09/21 05:42 Baso # (Auto) 0.0 10^3/uL (0.0-0.1) 09/09/21 05:42 Nucleated RBC % (auto) 0 % 09/09/21 05:42 Nucleated RBCs # 0.0 /100WBC 09/09/21 05:42 PT 14.60 SECONDS (12.1-14.9) 09/09/21 05:42 INR 1.11 (0.8-1.2) 09/09/21 05:42 APTT 29.6 SECONDS (23.9-36.7) 09/06/21 16:00 Sodium 132 mmol/L (136-145) L 09/09/21 05:42 Potassium 3.8 mmol/L (3.5-5.1) 09/09/21 05:42 Chloride 97 mmol/L (98-107) L 09/09/21 05:42 Carbon Dioxide 26 mmol/L (22-29) 09/09/21 05:42 Anion Gap 12.8 (5-19) 09/09/21 05:42 BUN 14 mg/dL (8-23) 09/09/21 05:42 Creatinine 0.6 mg/dL (0.7-1.2) L 09/09/21 05:42 GFR Calculation Not Reportable 09/09/21 05:42 Glucose 142 mg/dL (65-115) H 09/09/21 05:42 POC Glucose 133 mg/dL (70-110) H 09/09/21 06:36 Calculated Osmolality 277 mOsm/kg (285-295) L 09/09/21 05:42 Calcium 8.6 mg/dL (8.5-10.5) 09/09/21 05:42 Phosphorus 2.5 mg/dL (2.5-4.5) 09/09/21 05:42 Magnesium 1.7 mg/dL (1.7-2.3) 09/09/21 05:42 Total Bilirubin 1.1 mg/dL (0.15-1.2) 09/09/21 05:42 AST 15 U/L (0-40) 09/09/21 05:42 ALT 7 U/L (0-41) 09/09/21 05:42 Alkaline Phosphatase 76 IU/L (40-130) 09/09/21 05:42 NT-Pro-B Natriuret Pep 2186 pg/mL (0-450) H 09/09/21 05:42 Total Protein 6.4 g/dL (6.6-8.7) L 09/09/21 05:42 Albumin 3.1 g/dL (3.5-5.2) L 09/09/21 05:42 Globulin 3.3 g/dL (1.3-4.6) 09/09/21 05:42 Procalcitonin 0.07 ng/mL (0-0.5) 09/09/21 05:42 TSH 3.02 uIU/mL (0.27-4.20) 09/06/21 16:00 Urine Color Red (Yellow) 09/06/21 16:17 Urine Appearance Bloody (CLEAR) A 09/06/21 16:17 Urine pH 6.5 (5-7) 09/06/21 16:17 Ur Specific [place] 1.015 (1.005-1.030) 09/06/21 16:17 Urine Protein 3+ (Negative) H 09/06/21 16:17 Urine Glucose (UA) Norm (Normal) 09/06/21 16:17 Urine Ketones Negative (Negative) 09/06/21 16:17 Urine Blood 3+ (Negative) H 09/06/21 16:17 Urine Nitrate Negative (Negative) 09/06/21 16:17 Urine Bilirubin Neg (Negative) 09/06/21 16:17 Urine Urobilinogen Norm mg/dL (Negative) 09/06/21 16:17 Ur Leukocyte Esterase Negative (Negative) 09/06/21 16:17 Urine RBC >100 /hpf (0-2) H 09/06/21 16:17 Urine WBC 5-10 /hpf (0-5) H 09/06/21 16:17 Ur Squamous Epith Cells 0-4 /hpf (0-5) H 09/06/21 16:17 Amorphous Sediment Not Reportable 09/06/21 16:17 Urine Bacteria 1+ /hpf (NONE) H 09/06/21 16:17 Vitals Last Vital Signs Temp 98.7 F 09/09/21 07:10 Pulse 62 09/09/21 08:15 Resp 18 09/09/21 08:15 BP 119/71 09/09/21 07:10 Pulse Ox 95 09/09/21 08:15 Discharge Plan Discharge Patient Disposition: Home Condition: Stable Prescriptions: New oxycodone-acetaminophen 5-325 mg Tablet 0.5 tab PO Q12H PRN (Reason: Moderate Pain) 7 Days Qty: 4 0RF tamsulosin 0.4 mg capsule 0.4 mg PO DAILY Qty: 30 12RF Continued carvedilol [Coreg] 6.25 mg tablet 6.25 mg PO BID Qty: 180 3RF Rx Instructions: must administer with a meal/food metformin 500 mg tablet 500 mg PO BID Qty: 180 3RF Entresto 24-26 mg tablet 1 tab PO BID Qty: 180 3RF furosemide 40 mg tablet 40 mg PO DAILY 0RF potassium chloride 20 mEq tablet extended release 20 meq PO BID 0RF multivitamin Tablet 1 tab PO .OCCASIONALLY 0RF glucosamine-chondroitin [Osteo Bi-Flex] 250-200 mg Tablet 1 tab PO .OCCASIONALLY 0RF Fish Oil 1 cap PO .OCCASIONALLY 0RF tiotropium bromide 1.25 mcg/actuation mist 2 inh inhalation DAILY PRN (Reason: shortness of breath) Qty: 4 0RF Discontinued rivaroxaban 20 mg tablet 20 mg PO DAILY 90 Days Qty: 90 3RF Rx Instructions: must administer with evening meal Discharge Orders: Discharge Order (Routine); Ordered 09/09/21 Ordered By: Soham Garcia Other Ambulatory Orders: DME: [facility] (Order) Location: None Selected Ordered By: Chino Randhawa Referrals: Abimael Verde MD [Primary Care Provider] - Soham Gracia MD [Physician] - 4-7 days (Pathology check CT scan abdomen and pelvis with and without contrast Voiding trial, [facility] instruction ) Inés Oneill MD [Physician] - 1 week Discharge Diet: Usual diet Discharge Activity: Limit activity as instructed Activity Restrictions/Additional Instructions: Urology: 1. Maintain Chatman catheter until follow-up in my office at which point we will do a voiding trial. You can choose per your preference whether to use a leg bag or night bag. 2. New medication added was TAMSULOSIN 0.4 mg at night. This is to help you void better once the catheter was removed. This is not a commitment to long-term usage but rather to improve our chances of successful voiding once the catheter is removed. We can reassess later to decide whether it is worth it for the care home. 3. Within the parameters/restrictions provided by your regrader fluid consumption is a good thing to help reduce the risk of clots forming in your naida dder and plugging the catheter. Reducing activity to leisure ambulation will help reduce the risk of significant bleeding. 4. The final pathology report should be available on follow-up. 5. We are planning a CT scan of your abdomen and pelvis with IV contrast and oral contrast. This will help better stage. 6. There is also a cyst in the left kidney that needs further characterization and the CT scan will help us with that. It has the appearance of a benign lesion with no further treatment anticipated at this point. 7. You can reach me at my office at [phone] during normal working hours or through the hospital carbon sequestration plant operator at [phone] after hours. Discharge Attestations Time Spent in Discharge Care*: less than 30 min Status at Discharge: Cognitive status at discharge: cognitively intact , Behavioral status at discharge: cooperative , Quality Metrics Clinical Quality Measures [ No reported AMI, CVA or VTE this stay] Coding Level of Care Code Acute g 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
[2021-09-09 11:46] VITALS: BP 143/71; PULSE 94; RESP 18; TEMP 37.1; O2SAT 98
[2021-09-09] MEDS: insulin lispro 100 unit/1 mL SUBCUT (13:04)
[2021-09-09 16:01] VITALS: BP 143/71; PULSE 94; RESP 18; TEMP 37.1; O2SAT 98
[2021-09-09 17:25] LABS: Glucose Point of Care 206 mg/dL (70-110)
== END 2021-09-09 15:00 | disposition home or self-care (01) | DRG 669 ==
LOC: ER 18:08 → MEDSURG 20:27
PROVIDERS: Physician Assistant; Urology; Admitting Provider Family Medicine; Emergency Provider Family Medicine; PCP Neurological Surgery; Visit Provider Family Medicine
PROC: 0TJB8ZZ Inspection of Bladder, Via Natural or Artificial Opening Endoscopic (ICD-10-PCS; CPT 52000; principal; 2021-09-06 19:00)
PROC: 0T5B8ZZ Destruction of Bladder, Via Natural or Artificial Opening Endoscopic (ICD-10-PCS; 2021-09-06 19:00)
PROC: 0TBB8ZZ Excision of Bladder, Via Natural or Artificial Opening Endoscopic (ICD-10-PCS; 2021-09-06 19:00)
DX: C67.2 Malignant neoplasm of lateral wall of bladder (principal); I50.22 Chronic systolic (congestive) heart failure; N32.89 Other specified disorders of bladder; I48.91 Unspecified atrial fibrillation; J44.9 Chronic obstructive pulmonary disease, unspecified; E11.9 Type 2 diabetes mellitus without complications; I08.1 Rheumatic disorders of both mitral and tricuspid valves; N28.1 Cyst of kidney, acquired; I44.7 Left bundle-branch block, unspecified; N40.1 Benign prostatic hyperplasia with lower urinary tract symptoms; R35.1 Nocturia; Z79.84 Long term (current) use of oral hypoglycemic drugs
CPT/HCPCS: 36415; 36416; 51702; 74176; 80053; 81001; 82962; 83735; 83880; 84100; 84145; 84443; 85025; 85610; 85730; 87086; 88305; 88342; 94664; 96372; 97110; 97161; 97165; 99285; C9113; G0378; J1815; J1885; J1956; J2270; J2405; J2704; J2710; J3010; J3490

== ENCOUNTER → 2021-09-20 08:24 | Outpatient (BNVA) | payer MEDICAID, SELFPAY | PROVIDERS: PCP Neurological Surgery; Visit Provider Internal Medicine Cardiovascular Disease | DX: Z20.822 Contact with and (suspected) exposure to COVID-19 (principal); I44.7 Left bundle-branch block, unspecified; I48.91 Unspecified atrial fibrillation; I50.22 Chronic systolic (congestive) heart failure; I25.10 Atherosclerotic heart disease of native coronary artery without angina pectoris | CPT/HCPCS: 80048; 83880; 85025; 85610; 87635 ==

== ENCOUNTER 2021-09-22 06:17 | Outpatient (CLI) | payer MEDICAID, SELFPAY ==
[2021-09-22] VITALS (13 sets, daily range): BP systolic 109–121; BP diastolic 62–74; PULSE 62–82; RESP 10–21; TEMP 36.4; O2SAT 96–100; BMI 25.2
--- NOTE | 2021-09-22 06:00 | XACV_ITS ---
Exam Room: 2 Ht: 180 cm Wt: 82 kg BSA: 2.04 m2 Gender: Male : 1945 Exam Priority: Routine Procedure(s): Procedure Description: Diagnostic procedure Procedure Description: Coronary Angiography Diagnostic Cath Status: Elective Diagnostic Findings * 75 yo man with newly diagnosed cardiomyopathy with LVEF=18%, possibly severe MR, moderate pHTN 48 mm Hg and LBBB. He was also recently diagnosed with atrial fibrillation and type 2 diabetes mellitus. He developed hematuria and clot urinary retention while on Xarelto requiring cystoscopy and transurethral resection of large leiomyoma. He is here today for left heart catheterization. * Angiography shows a right coronary dominant system. * Very short left main. * Mid to distal left anterior descending artery with multiple severe stenoses (90-99%). DEVAN-3 flow. Second diagonal with long proximal severe 95% stenosis with DEVAN-3 flow.. * Mid circumflex with mild 20% stenosis. Middle portion of distal circumflex with 60% stenosis. Very small first obtuse marginal. Second obtuse marginal with proximal to mid long 95% stenosis. DEVAN 3 flow. * Middle segment of mid right coronary artery with 40 to 50% stenosis. 95% stenosis in distal portion of mid RCA just before second acute marginal. Distal RCA with minor irregularities. DEVAN 3 flow. Conclusions 1. Cardiac Catheterization study revealed severe multivessel coronary artery disease.. 2. Multivessel coronary artery disease with severe LV dysfunction in a diabetic patient. Case was discussed with Dr. Brush. Decision was made for outpatient viability study and schedule patient to see Dr. Brush outpatient. Findings of the study and the plan was discussed with the patient as well. Recommendations * Continue optimal medical management. Meticulous diabetes control. * Statin and aspirin 81mg lifelong, if tolerated. * Follow up with Dr. Brush in 1-[address] Oneill in 4 weeks. Pressures Phase:Rest AO : 105 / 74 ( 90 ) @ 8:45:00 AM 103 / 76 ( 90 ) @ 8:48:00 AM Clinical Evaluation EBL: 5mL-10mL Procedural Details Procedure Consent Obtained. Pre-Procedure Time Out. Identified patient by full name and date of as verbalized by the patient/guarantor. Does the consent match the physician's order: Yes. Accurate & Complete Informed Consent: Yes. Inpatient/Outpatient History & Physical on Chart: Yes. If H&P is completed, is and addenduem needed: Yes; If yes, is the addendum complete: Yes. Visualize and Verify Site with Patient/Guarantor: N/A. Relevant Radiology Images available: Yes. The risks, benefits, and alternatives of sedation and/or procedure were discussed by physician. The patient agrees to continue. Procedure started. [facility] Clinical Fraility Score: 3: Managing Well. Granite Cutter Apprentice Indications: Worsening Angina. Chest Pain Symptom Assessment: Typical Angina Symptoms. Cardiovascular Instability: No. Correct patient, site and procedure confirmed by cath team. PERRLA. Strong, equal hand lead manufacturing engineer bilaterally. Lungs clear x 5 lobes. IV Site on Arrival: 20 gauge in the left anticubital. IV Fluids: 0.9% NaCl at KVO. 0 mL infused prior to laborer/key man. Pre Procedural Pulses: bilateral radial was 3+. Pre Procedural Pulses: bilateral dorsalis pedis was 1+. Pre Procedural Pulses: right posterior tibial was 2+. Pre Procedural Pulses: left posterior tibial was 1+. Oxygen started at 2liters/min via nasal canula. right groin was prepped with chloroprep then draped in the usual sterile fashion. right radial was prepped with chloroprep then draped in the usual sterile fashion. Physician notified. Baseline sample Acquired. HR: 66 BPM. Patient's family unavailable. Equipment: 6F - Radial. Cardiac Cath Pack. ACIST Manifold Kit Model BT 2000. Heparinized Saline (2 units/mL), 1000 mL bag. Physician arrived. Physician scrubbed in. Immediate Pre-Procedure Time Out. Correct Patient: Yes; Correct Procedure: Yes; Correct Site: Yes; Correct Patient Position: Yes; Correct Supplies: Yes; Dried Flammable Prep: Yes; Blood Products Available: N/A. Lidocaine 1% infiltrated to the right radial. Arterial access obtained. A 5 hungarian TIG catheter in over wire. Multiple views taken of left coronary artery. Catheter redirected to the RCA. Multiple views taken of right coronary artery. Dr. Oneill performing case with Dr. Khoury in room. Dr. Oneill reviewing cine with Dr. Khoury. Catheter redirected to the LCA. Multiple views taken of left coronary artery. Catheter removed over the standard wire. Total IV fluids: 50 mL. Medication's Wasted: Nitro = 49.8 mg. Medication's Wasted: Heparin = 1000 units. Medication's Wasted: Lidocaine 1% = [address] Oneill scrubbed out. A TR Band was successful obtaining hemostatsis at the Right Radial artery insertion site. TR band placed. Hemostasis obtained. Post Procedure: Pulses reassessed and unchanged. PERRLA. Strong, equal hand lead manufacturing engineer bilaterally. No VTE prophylaxis required. Post-op diagnosis: Severe 3 vessel disease/CABG consult. Complications: none. Estimated blood loss: 5mL-10mL. Responsiveness - Normal response to verbal stimuli; alert and oriented, PERRLA. Airway - Unaffected, no intervention required; spontaneous ventilation. Circulation: W/N/L, pulses unchanged. Nausea/Vomiting: No. Procedure completed. Patient transferred by wheelchair to 1st floor. Vital chart was stopped. Access Site Site: Right Radial artery Sheath Size: 6 Fr Hemostasis Method: TR Band Hemostasis Success: Successful Procedure Medications Start: 7:24 AM Stop: 7:24 AM Medication: Versed Amount: 1 mg Route: I.V. Start: 7:25 AM Stop: 7:25 AM Medication: Fentanyl Amount: 50 mcg Route: I.V. Start: 7:29 AM Stop: 7:29 AM Medication: Versed Amount: 1 mg Route: I.V. Start: 7:31 AM Stop: 7:31 AM Medication: Nitrogylcerin Amount: 200 mcg Route: I.A. Start: 7:32 AM Stop: 7:32 AM Medication: Heparin Amount: 5000 units Route: I.V. I, the attending physician, have reviewed and verified all procedure medications. Yes, all medications given per verbal order History/Risk Factors Hypertension: No Dyslipidemia: No Peripheral Arterial Disease (PAD): No Myocardial Infarction (SD): No Obesity: No Renal Disease: No Tobacco Use: Former Prior Interventions PCI: No CABG: No Valve Surgery: No Report Signatures Finalized by Inés Oneill MD on 09/30/2021 02:09 PM
[2021-09-22] MEDS: diphenhydrAMINE 50 mg Capsule PO (06:40)
--- NOTE | 2021-09-22 07:18 | P.HP_ITS ---
Same Day Surgery H&P Indication for Procedure/HPI DATE OF PROCEDURE: September 22, 2021 CHIEF COMPLAINT/INDICATIONFOR SURGICAL PROCEDURE: Newly diagnosed cardiomyopathy PREOP DIAGNOSIS: Newly diagnosed cardiomyopathy PLANNED PROCEDURE: Operation Date: 09/22/21 07:00 Proposed Procedures p Cardiac Catheterization(Bilateral) - Inés Oneill MD 75 yo man with recently diagnosed cardiomyopathy with LVEF=18%, possibly severe MR, moderate pHTN 48 mm Hg and LBBB. Medications/Allergies* Home Medications Medication Instructions Recorded Confirmed Type Fish Oil 1 cap PO .OCCASIONALLY 08/09/21 09/22/21 History glucosamine-chondroitin 250 mg-200 1 tab PO .OCCASIONALLY 08/09/21 09/22/21 History mg tablet (Osteo Bi-Flex) multivitamin 1 tab PO .OCCASIONALLY 08/09/21 09/22/21 History furosemide 40 mg tablet 40 mg PO DAILY 09/07/21 09/22/21 History potassium chloride 20 mEq 20 meq PO BID 09/07/21 09/22/21 History tablet,extended release Allergies/Adverse Reactions Allergy/AdvReac Type Severity Reaction Status Date / Time No Known Allergies Allergy Verified 09/15/21 16:22 Current Medications: Generic Name Dose Route Start Last Admin Trade Name Freq PRN Reason Stop Dose Admin Sodium Chloride 1,000 mls @ 50 mls/hr 09/22/21 06:15 09/22/21 07:16 Sodium Chloride 0.9% IV 09/23/21 02:14 Not Given .Q20H ONE Pertinent History/Comorbid Conditions* Medical History (Updated 09/14/21 @ 16:07 by Soham Garcia MD) Clot retention of urine Congestive heart failure COPD (chronic obstructive pulmonary disease) Diabetes mellitus LBBB (left bundle branch block) Leiomyoma Mitral regurgitation New onset atrial fibrillation Tricuspid valve regurgitation Surgical History (Updated 08/08/21 @ 22:10 by Arie Oneil MD) No significant past surgical history Family History (Updated 08/08/21 @ 22:11 by Arie Oneil MD) Denies family history of Clotting disorder Chronic kidney disease (CKD) Cancer Social History Smoking and tobacco status: former smoker Alcohol intake: former Caregiver/support person: No Lives independently: Yes Household members: none Pertinent Exam Findings alert, oriented x 3 and clear to auscultation bilaterally Conscious Sedation Assessment PATIENT ASSESSED PRIOR TO SEDATION, WITH NO CHANGE NOTED: Yes AIRWAY EVAL/ANESTHESIA PLAN: normal airway, ASA III, Monitored Anesthesia, Risks, benefits & alternatives of sedation and/or procedure discussed and Patient agrees to continue as planned Recommendations Surgery/Procedure today Other Plans: Plan to proceed with procedure as planned. Coding Level of Care Code Acute Occupational Therapy Teacher for Guero Potter
--- NOTE | 2021-09-22 10:08 | PC.CHAP ---
Pastoral Care Encounter/Spiritual Assessment Type of Contact [] Declined food and nutrition services supervisor visit [] Patient/Family/Request visit [] Outpatient visit [] Follow-up visit [] Physician referral [] Code/Alert [x] Routine visit [] Staff referral [] Actively dying [] Patient sleeping [] Family support [] [] Out of room [] Palliative care [] [x] Receiving care in room [] Pre-surgical visit [] Trauma [] Long length of stay [] ICU visit [] Other: Relational/Emotional Strength [x] Patient feels connected with others/family/visitors/staff [] Distress [] Loneliness/isolation [] Abandonment Spirituality of Patient [x] Person of Glorai [] Attends Druze of their Gloria [x] Believes in Prayer [] Reads Bible or Pentecostal materials [] There are Spiritual issues to be addressed Change Manager Interventions [x] Prayer [x] Active listening [x] Non-anxious presence [x] Spiritual/emotional support [] Crisis/trauma care [x] Spiritual counseling [] Bereavement support [] Provided bereavement packet [] Provided Bible/devotional materials [] Provided toy/stuffed animal, coloring book to patient or family member [] Provided Communion [] Anointing/Paron [] Salvation [x] Completed spiritual assessment [] Other: Impact on Illness or Injury [] Angry [] Fearful [x] Anxious [] Often cries [] Exhaustion [] Unable to work [] Unable to attend mu-ism [] Unable to walk/stand [] Unable to read [] Unable to drive [] Unable to eat/drink [] Unable to sleep [] Unable to be with family [] Patient intubated [] Other: Summary the heart had an angiegram not sure about his health but believes he is doing better, going home soon has a good attitude Time spent with patient 10 mins
--- NOTE | 2021-09-22 12:07 | PM.MISC ---
Miscellaneous Note Purpose of Documentation: Preliminary left heart catheterization report: Patient underwent left heart catheterization via right radial access. He was found to have multivessel coronary artery disease. Severe diffuse high-grade stenosis in LAD and diagonal, severe stenosis of obtuse marginal and proximal RCA. The findings of the study were discussed with the patient as well as Dr. Brush and Dr. Khoury. Patient is here accompanied by his friend as his daughter is currently out of town. Decision was made to set up an outpatient appointment with Dr. Brush for discussion of possible coronary artery bypass grafting. Patient may be discharged later today once TR band comes off.
== END 2021-09-22 14:15 | disposition home or self-care (01) ==
LOC: CCL 06:25 → CSU 08:16
PROVIDERS: PCP Neurological Surgery; Visit Provider Internal Medicine Cardiovascular Disease
DX: I25.10 Atherosclerotic heart disease of native coronary artery without angina pectoris (principal); I50.9 Heart failure, unspecified; J44.9 Chronic obstructive pulmonary disease, unspecified; E11.9 Type 2 diabetes mellitus without complications; I44.7 Left bundle-branch block, unspecified; I48.91 Unspecified atrial fibrillation; Z87.891 Personal history of nicotine dependence
CPT/HCPCS: 36415; 93454; C1769; C1887; C1894; G0378; J1644; J2250; J3010; J3490; J7030; Q0163; Q9967

== ENCOUNTER → 2021-09-29 15:15 | Outpatient (BNVA) | payer MEDICAID, SELFPAY | PROVIDERS: PCP Neurological Surgery; Visit Provider Nurse Practitioner Family | DX: I25.10 Atherosclerotic heart disease of native coronary artery without angina pectoris (principal); Z09 Encounter for follow-up examination after completed treatment for conditions other than malignant neoplasm | CPT/HCPCS: 80048 ==

== ENCOUNTER 2021-10-25 13:56 | Outpatient (CLI) | payer MEDICAID, SELFPAY ==
--- NOTE | 2021-10-25 15:00 | US_ITS ---
WS: [id number] RENAL ULTRASOUND HISTORY: RENAL CYST COMPARISON: CT 09/06/2021 TECHNIQUE: 2-D and color Doppler imaging of the kidney submitted. Right kidney: 12.8 cm x 5.4 cm x 5.5 cm. Normal echogenicity with no hydronephrosis or mass. Left kidney: 12.8 cm x 6.0 cm x 6.7 cm. Normal size kidney. There is a complex cystic mass with septations involving the lower pole of the LE FT kidney. Calcification visualized septations. This mass measures 6.2 x 6.1 x 5.4 cm. No solid mural nodule. Aorta: Normal. Urinary Bladder: Normally distended bladder. Prostate gland is enlarged encroaching into the bladder. There are a few low-level echoes within the urinary bladder. US/US renal BI* [id number] IMPRESSION: 1. Complex cystic mass with septations lower pole LEFT kidney measures 6.2 x 6 .1 x 5.4 cm. Septations are partially calcified. No discrete mural nodule assoc iated with this mass but this is not a simple cyst. Continued close clinical an d imaging follow-up is recommended. 2. No renal obstruction. 3. Marked enlargement of the prostate gland.
== END 2021-10-25 13:57 | disposition home or self-care (01) ==
LOC: RAD 14:01
PROVIDERS: PCP Neurological Surgery; Visit Provider Urology
DX: N28.1 Cyst of kidney, acquired (principal); N40.0 Benign prostatic hyperplasia without lower urinary tract symptoms; N28.89 Other specified disorders of kidney and ureter
CPT/HCPCS: 76770

== ENCOUNTER → 2021-11-04 11:44 | Outpatient (BNVA) | payer SELFPAY | PROVIDERS: PCP Neurological Surgery; Visit Provider Urology | DX: N99.89 Other postprocedural complications and disorders of genitourinary system (principal); R33.8 Other retention of urine; N32.89 Other specified disorders of bladder; N28.1 Cyst of kidney, acquired; I07.1 Rheumatic tricuspid insufficiency; I25.10 Atherosclerotic heart disease of native coronary artery without angina pectoris | CPT/HCPCS: 81003 ==

== ENCOUNTER → 2021-11-10 16:25 | Outpatient (BNVA) | payer MEDICARE, MEDICAID, SELFPAY | PROVIDERS: PCP Neurological Surgery; Visit Provider Family Medicine | DX: D49.89 Neoplasm of unspecified behavior of other specified sites (principal) | CPT/HCPCS: 88305 ==

== ENCOUNTER → 2022-01-13 10:25 | Outpatient (BNVA) | payer MEDICARE, MEDICAID, SELFPAY | PROVIDERS: PCP Family Medicine; Visit Provider Urology | DX: D21.9 Benign neoplasm of connective and other soft tissue, unspecified (principal); D48.9 Neoplasm of uncertain behavior, unspecified | CPT/HCPCS: 52000; 81003 ==

== ENCOUNTER → 2022-04-24 12:49 | Outpatient (BNVA) | payer MEDICARE, MEDICAID, SELFPAY | PROVIDERS: PCP Family Medicine; Visit Provider Urology | DX: C67.9 Malignant neoplasm of bladder, unspecified (principal); N21.0 Calculus in bladder; N99.89 Other postprocedural complications and disorders of genitourinary system; R33.8 Other retention of urine; N28.1 Cyst of kidney, acquired | CPT/HCPCS: 52000; 81003; 99214 ==

== ENCOUNTER 2022-04-28 10:30 | Day surgery (SDC) | payer MEDICARE, MEDICAID, SELFPAY ==
[2022-04-28 11:31] VITALS: BMI 25.1
--- NOTE | 2022-04-28 11:52 | ECG_ITS ---
[facility] Test Date: 2022-04-28 Pat Name: Ramon Mims Department: Room: Gender: Male Office Director: : 1945 Requested By: Soham Garcia Order Number: [id number] Walker MD: Mariano Luna M.D. Measurements Intervals Imperial Rate: 64 P: LA: QRS: -66 QRSD: 126 T: 69 QT: 421 QTc: 437 Interpretive Statements ATRIAL FLUTTER/TACHYCARDIA LEFT ANTERIOR FASCICULAR BLOCK [QRS AXIS <= -45, QR IN I, RS IN II] LEFT VENTRICULAR HYPERTROPHY AND ST-T CHANGE [VOLTAGE CRITERIA PLUS ST/T ABNORMALITY] POSSIBLE ANTERIOR MYOCARDIAL INFARCTION , OF INDETERMINATE AGE [30 ms Q WAVE IN V3/V4, OR R < 0.2 mV IN V4] Compared to ECG 08/08/2021 17:11:31 Left anterior fascicular block now present Left ventricular hypertrophy now present ST (T wave) deviation now present Myocardial infarct finding now present Left-axis deviation no longer present Left bundle-branch block no longer present Electronically Signed On 04-28-2022 16:37:36 CDT by Mariano Luna M.D. [email or web address]
--- NOTE | 2022-04-28 11:57 | ANES.PREANE2 ---
Pre-Anesthetic Assessment Height/Weight: Height 1.8 m Weight 81.647 kg Preop Diagnosis: Newly diagnosed cardiomyopathy Operation Date: 05/01/22 08:10 Proposed Procedures p Cystolitholapaxy/ cysto [id number],C67.9(Not Applicable) - Soham Garcia MD s Cystoscopy(Not Applicable) - Soham Garcia MD Familial anesthetic complications: None Social No alcohol and No tobacco Exam alert, oriented x 3, clear to auscultation bilaterally and regular rate & rhythm Airway Mallampati: Class II Dentition: false Pulmonary Chronic Obstructive Pulmonary Disease CV/HEM Atrial Fibrillation, Coronary Artery Disease and Congestive Heart Failure Patient was being worked up in September for whether or not to have CABG. Further studies in [place] were required to determine viability of his heart and insurance wouldn't cover it. So the tests weren't done. Additonally, the patient states he was resolute that he wasn't going to have open heart surgery anyway. Was taken off xarelto for the a fib since he was having bleeding and hematuria Patient has improved since July and goes on long walks with his dog in the park and goes up hills even, I don't feel weak at all - states he can climb a couple flights of stairs just fine 08/06 echo CONCLUSIONS ?Severe diffuse hypokinesia of the left ventricle with an ?ejection fraction of 18%.? ?Mildly dilated left ventricular cavity. ?Mild biatrial enlargement Thickened mitral valve. ?At least moderate tricuspid regurgitation.? Mild pulmonary ?hypertension with an estimated pulmonary artery peak systolic ?pressure of 48 mmHg ? Possibly severe mitral regurgitation. ?There is no pericardial effusion. ?There are no intracardiac masses. ?Possible large left-sided pleural effusion ?No previous study is available for comparison. [employer] 10/04 * Angiography shows a right coronary dominant system. ? * Very short left main. ? * Mid to distal left anterior descending artery with multiple severe stenoses (90-99%). DEVAN-3 flow. Second diagonal with long proximal severe 95% stenosis with DEVAN-3 flow.. ? * Mid circumflex with mild 20% stenosis.? Middle portion of distal circumflex with 60% stenosis.? Very small first obtuse marginal.? Second obtuse marginal with proximal to mid long 95% stenosis. DEVAN 3 flow. ? * Middle segment of mid right coronary artery with 40 to 50% stenosis.? 95% stenosis in distal portion of mid RCA just before second acute marginal. Distal RCA with minor irregularities. DEVAN 3 flow. Conclusions ? 1. Cardiac Catheterization study revealed severe multivessel coronary artery disease.. ? 2. Multivessel coronary artery disease with severe LV dysfunction in a diabetic patient. Case was discussed with Dr. Brush.? Decision was made for outpatient viability study and schedule patient to see Dr. Brush outpatient. Findings of the study and the plan was discussed with the patient as well. Recommendations ? * Continue optimal medical management.? Meticulous diabetes control. ? * Statin and aspirin 81mg lifelong, if tolerated. ? * Follow up with Dr. Brush in 1-[address] Oneill in 4 weeks. Anesthetic Plan ASA status: 4 Anesthesia: General Risk of > 500 ml blood loss (7ml/kg in children): No Other Pertinent Information Discussed with patient that with EF of 18% and severe MR and high grade CAD, he's at higher risk of having perioperative cardiac complications. The patient has improved functional status since these studies, but he appears to have had no interventions and with no new studies to indicate how much improvement has occurred. I informed him that his ability to go up hills, climb stairs and walk long distance is an indicator that he might tolerate the surgical procedure well. States he'd like to speak with Dr. Garcia again regarding proceeding with the procedure. Medications/Allergies Home Medications Medication Instructions Recorded Confirmed Last Taken Type Fish Oil 1 cap PO DAILY 08/09/21 04/28/22 Unknown History glucosamine-chondroitin 250 mg-200 1 tab PO DAILY 08/09/21 04/28/22 Unknown History mg tablet (Osteo Bi-Flex) multivitamin 1 tab PO .OCCASIONALLY 08/09/21 04/28/22 Unknown History potassium chloride 20 mEq 20 meq PO BID 09/07/21 04/28/22 09/21/21 06:00 History tablet,extended release tamsulosin 0.4 mg capsule 0.4 mg PO DAILY #30 caps 09/09/21 04/28/22 09/21/21 06:00 Rx aspirin 81 mg tablet,delayed 81 mg PO DAILY #90 tabs 09/22/21 04/28/22 04/24/22 Rx release (Adult Aspirin Regimen) Allergies Allergy/AdvReac Type Severity Reaction Status Date / Time No Known Allergies Allergy Verified 04/24/22 12:55 [facility] Anesthesia Medical History Atherosclerosis of coronary artery Bladder cancer Bladder mass Congestive heart failure COPD (chronic obstructive pulmonary disease) Diabetes mellitus LBBB (left bundle branch block) Mitral regurgitation New onset atrial fibrillation Tricuspid valve regurgitation Surgical History No significant past surgical history Family History Denies family history of Clotting disorder Chronic kidney disease (CKD) Cancer Social History Smoking and tobacco status: former smoker Alcohol intake: current Alcohol intake frequency: holidays/special occasions only Caregiver/support person: No Lives independently: Yes Household members: none Marital status: Current occupational status: retired History of recent travel: No Data Anesthesia Cardiac Studies: Echocardiogram 08/09/21
[2022-04-28 12:16] LABS: Basophils % 0.4 %; Eosinophils # 0.1 10^3/uL (0.0-0.8); Hematocrit 42.3 % (42.0-52.0); Hemoglobin 15.4 g/dL (11.7-16.6); Lymphocytes # 2.5 10^3/uL (0.8-4.8); Lymphocytes % 35.5 %; Mean Corpuscular HGB Conc 36.4 g/dL (30.0-36.0); Mean Corpuscular Hemoglobin 32.5 pg (28.0-34.0); Mean Corpuscular Volume 89.2 fl (80-94); Mean Platelet Volume 10.3 fL (7.4-10.4); Monocytes # 0.6 10^3/uL (0.2-0.9); Monocytes % 7.9 %; Neutrophils # 3.89 10^3/uL (1.8-7.7); Neutrophils % 55.1 %; Nucleated Red Blood Cells % 0 %; Platelet Count 124 10^3/cmm (130-400); Red Blood Count 4.74 10^6/uL (4.1-5.3); Red Cell Distribution Width 12.8 % (12.1-15.1); White Blood Count 7.1 10^3/uL (4.0-10.0)
[2022-04-28 12:48] LABS: Alanine Aminotransferase 11 U/L (0-41); Albumin Level 4.2 g/dL (3.5-5.2); Alkaline Phosphatase 82 U/L (40-130); Anion Gap 18.3 (5-19); Aspartate Amino Transferase 17 U/L (0-40); Blood Urea Nitrogen 11 mg/dL (8-23); Calcium 9.9 mg/dL (8.5-10.5); Carbon Dioxide 24 mmol/L (22-29); Chloride 101 mmol/L (98-107); Globulin 3.2 g/dL (1.3-4.6); Glucose 133 mg/dL (65-115); Osmolality Calculated 289 mOsm/kg (285-295); Potassium 4.3 mmol/L (3.5-5.1); Sodium 139 mmol/L (136-145); Total Bilirubin 0.9 mg/dL (0.15-1.2); Total Protein 7.4 g/dL (6.6-8.7)
== END 2022-04-28 23:00 | disposition home or self-care (01) ==
LOC: OPS 05-14 19:18
PROVIDERS: PCP Family Medicine; Visit Provider Urology
DX: Z01.818 Encounter for other preprocedural examination (principal)
CPT/HCPCS: 80053; 85025; 93005

== ENCOUNTER → 2022-05-08 15:00 | Outpatient (BNVA) | payer MEDICARE, MEDICAID, SELFPAY | PROVIDERS: PCP Family Medicine; Visit Provider Family Medicine | DX: N39.0 Urinary tract infection, site not specified (principal); C44.91 Basal cell carcinoma of skin, unspecified; L82.1 Other seborrheic keratosis; N40.0 Benign prostatic hyperplasia without lower urinary tract symptoms | CPT/HCPCS: 81000 ==

== ENCOUNTER 2022-05-10 15:44 | Outpatient (CLI) | payer MEDICARE, MEDICAID, SELFPAY ==
--- NOTE | 2022-05-10 15:45 | USCV_ITS ---
MimsJunaidRamon Age: 76 Gender: M : 1945 Exam Date: 05/10/2022 16:20 Ordering Phys: Inés Oneill MD ([email or web address]) Technologist: Kenton Hauser Exam Location: [facility] [place] Indication: Assess LV function BP: 118 / 70 HR: 81 Rhythm: Sinus Technical Quality: Adequate MEASUREMENTS (Male / Female) Normal Values 2D ECHO LV Diastolic Diameter PLAX 5.6 cm 4.2 - 5.9 / 3.9 - 5.3 cm LV Systolic Diameter PLAX 4.7 cm IVS Diastolic Thickness 1.1 cm 0.6 - 1.0 / 0.6 - 0.9 cm IVS Systolic Thickness 1.0 cm LVPW Diastolic Thickness 1.3 cm 0.6 - 1.0 / 0.6 - 0.9 cm LVPW Systolic Thickness 1.4 cm LVOT Diameter 2.0 cm LV Ejection Fraction 2D Teich 34.0 % LV Ejection Fraction MOD 2C 32.8 % LV Ejection Fraction 2C AL 33.1 % LA Diameter 3.6 cm LA Width 3.4 cm LA Height 4.9 cm RA Width 4.1 cm RA Height 5.1 cm Aorta at Sinotubular Diameter 3.0 cm IVC Diameter 1.5 cm M-MODE Aortic Annulus Diameter 3.5 cm LA Ao Ratio MM 0.9 MV E Point Septal Separation 1.2 cm DOPPLER Right Atrial Pressure 3.0 mmHg FINDINGS Left Ventricle Normal left ventricular cavity size. Normal left ventricular wall thickness. Severely decreased left ventricular systolic function. Left ventricular ejection fraction is estimated at 25- 30 %. Severe global left ventricular hypokinesis. Abnormal septal motion consistent with conduction abnormality. No LV apical thrombus. Right Ventricle Normal right ventricular size and systolic function. Right Atrium Normal right atrial size. Left Atrium Mildly increased left atrial size. Mitral Valve Structurally normal mitral valve. Aortic Valve Aortic valve not well visualized. Tricuspid Valve Structurally normal tricuspid valve. Pulmonic Valve Pulmonic valve not well visualized. Pericardium No pericardial effusion. Aorta Normal size aortic root and proximal ascending aorta. IVC Normal IVC dimension with >50% respiratory change of the inferior vena cava. CONCLUSIONS 1. Normal left ventricular cavity size. Normal left ventricular wall thickness. Severely decreased left ventricular systolic function. Left ventricular ejection fraction is estimated at 25- 30 %. Severe global left ventricular hypokinesis. Abnormal septal motion consistent with conduction abnormality. 2. Mildly increased left atrial size. 3. No LV apical thrombus. 4. When compared to study dated 08/09/21, left ventricular systolic function seems to have improved from 18% then. Inés Oneill MD (Electronically Signed) Final Date: 14 May 2022 10:23 S
[2022-05-10] MEDS: perflutren protein-a microsphr 0.22 mg/mL SDV 3 mL IV (17:14)
== END 2022-05-10 15:45 | disposition home or self-care (01) ==
PROVIDERS: PCP Family Medicine; Visit Provider Internal Medicine Cardiovascular Disease
DX: I50.9 Heart failure, unspecified (principal); I08.1 Rheumatic disorders of both mitral and tricuspid valves; I48.91 Unspecified atrial fibrillation; E11.9 Type 2 diabetes mellitus without complications; I45.9 Conduction disorder, unspecified
CPT/HCPCS: 99214; C8924

== ENCOUNTER → 2022-08-04 13:08 | Outpatient (BNVA) | payer MEDICARE, MEDICAID, SELFPAY | PROVIDERS: PCP Family Medicine; Visit Provider Dermatology | DX: D48.9 Neoplasm of uncertain behavior, unspecified (principal) | CPT/HCPCS: 88305; 88341; 88342 ==

== ENCOUNTER 2022-08-29 13:02 | Outpatient (CLI) | payer MEDICARE, MEDICAID, SELFPAY ==
--- NOTE | 2022-08-29 13:00 | CT_ITS ---
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 Post contrast imaging t hrough the abdomen and pelvis. Oral contrast has not been provided. Sagittal and coronal reformats a re submitted. All CT scans at [facility] use at least one of these dose optimization techniqu es: automated exposure control; mA and/or kV adjustment per patient size (includes targeted exams whe re dose is matched to clinical indication); or iterative reconstruction. CONTRAST: Omnipaque 350; 100 mL IV. DLP: 1101.75 mGy.cm COMPARISON: 09/06/2021 Lung bases are clear. Normal size heart. Very small hiatal hernia. Normal size liver. No metastatic disease. Normal portal vein. Well-distended gallbladder with numerou s stones. No evidence for acute cholecystitis. Normal spleen and pancreas. Calcifications adjacent to the pancreatic head unchanged. No bile duct dilatation no adrenal mass. Mild atherosclerosis aorta. Negative RIGHT kidney. No mass. Cystic mass with septations and calcifications involving the lower po le LEFT kidney measures 7.0 x 4.9 cm. This mass was previously described on 09/06/2021. Stomach nondistended. No small bowel obstruction. Normal appendix. The appendix does contain increase d density which is probably appendicolith. Tortuosity of the sigmoid colon with circumferential wall thickening and diverticula. No evidence for acute diverticulitis. Bladder is moderately distended. There is marked enlargement of the prostate gland. Prostate is heter ogeneous with mild enhancement measuring 7.2 x 6.1 cm and extends over length of 8.3 cm. Encroachment into the urinary bladder. No adjacent lymph nodes. Patent inguinal canals containing fat only. No os teoblastic or osteolytic bone disease. CT/CT abdomen pelvis wo/w [id number] IMPRESSION: 1. Complex cystic mass with septations lower pole LEFT kidney measures 7.0 x 4 .9 cm. No change since 09/06/2021. 2. Markedly enlarged heterogeneous prostate gland. 3. Mild sigmoid wall thickening with diverticulosis. Colonoscopy may be necess fahad to exclude malignancy. There is no obstruction. 4. Cholelithiasis without acute cholecystitis.
[2022-08-29] MEDS: iohexol 350 mg/mL 500 mL Btl (per mL) IV (13:16)
[2022-08-29 13:47] LABS: Blood Urea Nitrogen 16 mg/dL (8-23)
== END 2022-08-29 13:03 | disposition home or self-care (01) ==
PROVIDERS: PCP Family Medicine; Visit Provider Dermatology
DX: Z01.89 Encounter for other specified special examinations (principal); N28.89 Other specified disorders of kidney and ureter; K57.30 Diverticulosis of large intestine without perforation or abscess without bleeding; K80.20 Calculus of gallbladder without cholecystitis without obstruction
CPT/HCPCS: 74178; 82565; 84520; Q9967

== ENCOUNTER → 2022-09-22 12:59 | Outpatient (BNVA) | payer MEDICARE, MEDICAID, SELFPAY | PROVIDERS: PCP Family Medicine; Visit Provider Dermatology | DX: C44.40 Unspecified malignant neoplasm of skin of scalp and neck (principal) | CPT/HCPCS: 88305 ==

== ENCOUNTER → 2023-02-01 14:27 | Outpatient (BNVA) | payer MEDICARE, MEDICAID, SELFPAY | PROVIDERS: PCP Family Medicine; Visit Provider Family Medicine | DX: B37.0 Candidal stomatitis (principal); I48.91 Unspecified atrial fibrillation; I50.22 Chronic systolic (congestive) heart failure; N40.0 Benign prostatic hyperplasia without lower urinary tract symptoms; Z12.5 Encounter for screening for malignant neoplasm of prostate; E83.52 Hypercalcemia | CPT/HCPCS: 80053; 80061; 82306; 83036; 84443; 85025; G0103 ==

== ENCOUNTER 2023-02-16 15:56 | Outpatient (CLI) | payer MEDICARE, MEDICAID, SELFPAY ==
--- NOTE | 2023-02-16 16:00 | CTR_ITS ---
PROCEDURE INFORMATION: Exam: CT Neck With Contrast Exam date and time: 02/16/2023 4:33 PM Age: 77 years old Clinical indication: Mass, lump, or swelling in neck; Left; Additional info: Tongue mass with sores to the roof of mouth and tongue since September of 2022. Pain when putting dentures in and with eating. Neck swelling, difficulty swallowing and talking. TECHNIQUE: Imaging protocol: Computed tomography of the neck with contrast. Radiation optimization: All CT scans at this facility use at least one of these dose optimization techniques: automated exposure control; mA and/or kV adjustment per patient size (includes targeted exams where dose is matched to clinical indication); or iterative reconstruction. Contrast material: OMNI 350; Contrast volume: 100 ml; Contrast route: INTRAVENOUS (IV); REPORTING DATA: Count of CT and Cardiac NM exams in prior 12 months: This patient has received [address] and 0 known cardiac nuclear medicine studies in the 12 months prior to the current study. COMPARISON: CT angio chest PE protcl [id number] 08/08/2021 11:24 PM RADIATION DOSE METRICS: Total DLP (mGy-cm): 196.33 FINDINGS: Pharynx: Unremarkable. No significant tonsillar enlargement. Larynx: Unremarkable. Epiglottis is normal. Prevertebral and retropharyngeal spaces: Unremarkable. Salivary glands: Centered in the left sublingual space and involving the left lateral aspect of the tongue base, there is a rim enhancing lesion with central area of decreased attenuation and thick wall, which appears to extend to midline anteriorly, measuring approximally 3.6 x 2.2 x 3.1 cm. There is mild decreased attenuation of the left submandibular gland and slight stranding of the surrounding fat. In the right submandibular region/inferior parotid pace and posterior to the angle of the mandible, there is an additional rim enhancing lesion with central area of decreased attenuation and thick wall, measuring approximally 1.7 x 1.7 x 2.4 cm mild stranding of the adjacent fat seen.. The adjacent mandible does not appear to be involved. Small reactive lymph nodes noted in the left submandibular region bilaterally. Thyroid: Normal. No enlarged or calcified nodules. Lymph nodes: See Salivary glands finding. Trachea: Visualized trachea is unremarkable. Lungs: Centrilobular emphysema is present. There are bilateral subpleural ground-glass and reticular opacities, suggestive of mild pulmonary fibrosis. Bilateral subpleural nodules noted, the largest in the right posterior upper lobe measuring 0.6 cm. Bones/joints: Degenerative changes of the spine seen. Vasculature: Mild diffuse atherosclerotic disease is present. Soft tissues: See Salivary glands finding. CT/CT neck w con* [id number] IMPRESSION: 1. Heterogeneous lesions with central area of decreased attenuation and thick wall involving the left sublingual space/tongue base and right submandibular/parotid space, in association with minimal haziness of the surrounding fat and small bilateral reactive lymph nodes. Diagnostic considerations include malignancy and abscesses. Clinical correlation is recommended. 2. Nonspecific bilateral subpleural nodules.
[2023-02-16] MEDS: iohexol 350 mg/mL 500 mL Btl (per mL) IV (16:48)
== END 2023-02-16 15:57 | disposition home or self-care (01) ==
LOC: RAD 15:57
PROVIDERS: PCP Family Medicine; Visit Provider Family Medicine
DX: K14.9 Disease of tongue, unspecified (principal); K13.79 Other lesions of oral mucosa; R91.8 Other nonspecific abnormal finding of lung field; R93.0 Abnormal findings on diagnostic imaging of skull and head, not elsewhere classified
CPT/HCPCS: 70491; Q9967

== ENCOUNTER → 2023-02-21 14:16 | Outpatient (BNVA) | payer MEDICARE, MEDICAID, SELFPAY | PROVIDERS: PCP Family Medicine; Visit Provider Otolaryngology | DX: R22.0 Localized swelling, mass and lump, head (principal); H61.23 Impacted cerumen, bilateral; K14.0 Glossitis; K14.8 Other diseases of tongue; K13.79 Other lesions of oral mucosa; F17.210 Nicotine dependence, cigarettes, uncomplicated | CPT/HCPCS: 69210; 99204 ==

== ENCOUNTER 2023-02-22 11:40 | Outpatient (CLI) | payer MEDICARE, MEDICAID, SELFPAY ==
--- NOTE | 2023-02-22 12:00 | US_ITS ---
WS: [id number] ULTRASOUND SOFT TISSUES left submandibular region. HISTORY: submandibular mass COMPARISON: Neck CT 02/16/2023 TECHNIQUE: 2-D and color Doppler imaging is submitted. Ultrasound was directed to the mass along the left submandibular region. There is a mixed but predomi nantly hypoechoic mass with no increased vascularity. Ill-defined margins. This mass is just deep to the left submandibular gland and incompletely visualized. This corresponds to the necrotic appearing mass or abscess involving the tongue base as seen on the prior study. Mass located along the region o f the sublingual gland. Necrotic appearing mass is incompletely visualized by ultrasound. No definite adenopathy IMPRESSION: Only partially visualized necrotic appearing mass along the left submandibular region. Mass is just d eep to the submandibular region. This may be a necrotic neoplasm or abscess. Recommend evaluation by ENT.
== END 2023-02-22 11:41 | disposition home or self-care (01) ==
PROVIDERS: PCP Family Medicine; Visit Provider Otolaryngology
DX: R22.0 Localized swelling, mass and lump, head (principal)
CPT/HCPCS: 76536

== ENCOUNTER 2023-02-24 05:31 | Outpatient (CLI) | payer MEDICARE, MEDICAID, SELFPAY ==
--- NOTE | 2023-02-24 | PETR_ITS ---
PROCEDURE INFORMATION: Exam: PET/CT Vertex to Mid-thigh Exam date and time: 02/24/2023 1:24 PM Age: 77 years old Clinical indication: Bladder cancer. 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 LABS AND CLINICAL REPORTS: Glucose: 108 mg/dl Treatment strategy for malignancy (PET staging): Initial Staging (PI) TECHNIQUE: Imaging protocol: Following at least four-hour fasting and following the injection of radiopharmaceutical, low dose CT images were obtained. Then, PET images were obtained. Attenuation corrected images were constructed using the CT scan. Fused images of PET and CT were reviewed. The standardized uptake values (SUV) reported below are maximum values within a region of interest, expressed in gm/ml. Exam includes vertex to mid-thigh. Radiopharmaceutical: 12.34 mCi F-18 FDG (Fluorodeoxyglucose), IV. Time of imaging post radiopharmaceutical administration: 58.45 minutes. Injection site: Left antecubital vein. COMPARISON: 1. CT neck w con* [id number] 02/16/2023 4:[address] abdomen pelvis wo/w [id number] 08/29/2022 1:50 PM FINDINGS: Brain: Visualized brain has normal physiologic uptake. Salivary glands: A hypermetabolic right parotid mass is 1.1 x 1.2 x 1.3 cm (image 41). Its max SUV is 6.8. A hypermetabolic left parotid lesion is 1.2 x 1.6 x 1.4 cm (image 35). Its max SUV is 8.1. Oral cavity: A hypermetabolic left sublingual mass is 3.8 x 2.8 x 3.2 cm (image 46). Its max SUV is 5.6. It is centrally necrotic. Pharynx: No abnormal uptake. Larynx: No abnormal uptake. Thyroid: A hypermetabolic mass in the right thyroid lobe is 1.0 x 2.3 x 1.4 cm. Its max SUV is 9.2 (image 60). Thyroid ultrasound and consideration for FNA is recommended. Lungs, pleura and trachea: A pleural-based lesion in the posterior aspect of the left lower lobe is 3.9 x 1.4 x 2.3 cm. Its max SUV is 7.9 (image 84). Malignancy is favored over infection. At the posteromedial aspect of the posterior basal segment of the left lower lobe, a 0.6 cm pleural-based hypermetabolic lesion has an SUV max of 4.0 (image 96). Centrilobular emphysema. Heart: Normal physiologic uptake. Mild cardiomegaly. Mediastinal space: No abnormal uptake. Liver: No abnormal uptake. Gallbladder and bile ducts: Multiple gallstones are present. No pericholecystic inflammatory changes to suggest cholecystitis. Pancreas: No abnormal uptake. Spleen: No abnormal uptake. Adrenal glands: No abnormal uptake. Kidneys and ureters: The complex cysts at the lower pole of the left kidney, which contains septations and calcifications, is not FDG avid. Its max SUV is only 1.6. It is not suspicious for malignancy. Stomach and bowel: No abnormal uptake. Reproductive: Markedly enlarged heterogeneous prostate gland is not FDG avid. Its max SUV is only 2.5. It is 7.1 x 5.9 x 7.3 cm (160 mL). Correlate with PSA. Vasculature: No abnormal uptake. Lymph nodes: No abnormal uptake. No lymphadenopathy in the head, neck, chest, abdomen, pelvis or extremities. Bones/joints: Numerous sclerotic hypermetabolic lesions are identified. A lesion in the manubrium is 6.4 x 2.3 x 4.3 cm (image 69). Its max SUV is 4.7. Lesion in the body of the sternum is 3.4 x 1.4 x 9.7 cm (transverse x ant-post x craniocaudal). Its max SUV is 7.7. Tumor extends from the sternal lesion into the left pectoralis major muscle. Its SUV max is 10.2 (image 89). There are metastases in multiple vertebrae including T4 (SUV max 4.6), T5 (SUV max 8.9), and L2 (SUV max 8.2). A metastasis in the posteromedial right ilium is 3.6 x 1.4 x 3.0 cm. Its max SUV is 6.9. A metastasis in the proximal right femoral shaft is 1.5 x 0.8 x 1.5 cm. Its max SUV is 6.6. Soft tissues: There are numerous hypermetabolic foci within muscles. Because they have no corresponding CT abnormality, they are of uncertain significance. For example, in the right infraspinatus muscle, a hypermetabolic lesion is 6.7 x 1.4 x 1.6 cm and its SUV max is 6.5 (image 62). A hypermetabolic lesion in a left paraspinous muscle at the T12 level is 2.3 x 1.6 x 2.1 cm and has an SUV max of 7.0 (image 111). A lesion in the proximal left vastus intermedius muscle has an SUV max of 9.2 (image 173). Additional lesions are present impression. Small bilateral fat containing inguinal hernias. PET/PET skulltothi INITIAL [id number] IMPRESSION: 1. A hypermetabolic left sublingual malignant mass is 3.8 x 2.8 x 3.2 cm. Its max SUV is 5.6. 2. In the left lower lobe, there are 2 hypermetabolic lesions. A 3.9 cm masslike density has a max SUV of 7.9. A 0.6 cm mass has an SUV max of 4.0. Metastases are favored over infection. 3. Seven hypermetabolic sclerotic metastases in the manubrium, sternal body, T4, T5 and L2 vertebral bodies, right ilium and right femur. Max SUVs range up to 10.2 in the sternum. 4. There are 10 hypermetabolic foci in muscles. Because they have no corresponding CT abnormality, their clinical significance is uncertain. Max SUVs range up to 9.2 in the left vastus intermedius muscle. Soft tissue metastases are possible. 5. Bilateral hypermetabolic parotid lesions are nonspecific and may be benign or malignant. 6. A 2.3 cm hypermetabolic mass in the right thyroid lobe has a max SUV is 9.2. It is nonspecific. Thyroid cancer is possible. Thyroid ultrasound and consideration for FNA is recommended. 7. The known complex cystic lesion at the lower left kidney is not FDG avid. 8. Cholelithiasis without CT evidence of acute cholecystitis. 9. Markedly enlarged non FDG avid prostate has a volume of 160 mL.
== END 2023-02-24 05:32 | disposition home or self-care (01) ==
LOC: RAD 02-26 05:32
PROVIDERS: PCP Family Medicine; Visit Provider Family Medicine
DX: C79.9 Secondary malignant neoplasm of unspecified site (principal); C67.9 Malignant neoplasm of bladder, unspecified
CPT/HCPCS: 78815; A9552

== ENCOUNTER 2023-03-12 15:03 | Oncology outpatient (recurring) (ONCR) | payer MEDICARE, MEDICAID, SELFPAY | END 2023-03-15 23:59 | disposition home or self-care (01) | LOC: ONCMED 15:08 | PROVIDERS: PCP Family Medicine; Visit Provider Internal Medicine Medical Oncology | DX: R91.8 Other nonspecific abnormal finding of lung field (principal); Z85.51 Personal history of malignant neoplasm of bladder; J44.9 Chronic obstructive pulmonary disease, unspecified | CPT/HCPCS: 99214 ==

== ENCOUNTER → 2023-03-20 13:57 | Outpatient (BNVA) | payer MEDICARE, MEDICAID, SELFPAY | PROVIDERS: PCP Family Medicine; Referring Provider Internal Medicine Medical Oncology; Visit Provider Internal Medicine Pulmonary Disease | DX: R91.8 Other nonspecific abnormal finding of lung field (principal); Z85.828 Personal history of other malignant neoplasm of skin; C79.9 Secondary malignant neoplasm of unspecified site; R59.1 Generalized enlarged lymph nodes; Z87.891 Personal history of nicotine dependence | CPT/HCPCS: 99204 ==

== ENCOUNTER 2023-03-27 15:31 | Outpatient (CLI) | payer MEDICARE, MEDICAID, SELFPAY ==
--- NOTE | 2023-03-27 16:00 | US_ITS ---
WS: [id number] ULTRASOUND SOFT TISSUES LEFT chest wall HISTORY: Chest wall mass COMPARISON: None available. TECHNIQUE: 2-D and color Doppler imaging is submitted. The chest wall mass identified by PET/CT is visualized by ultrasound. There is a hypoechoic elongated mass measuring at least 3.9 x 1.3 cm along the anterior chest wall, just to the LEFT of the sternum. There is mild increased vascularity. IMPRESSION: LEFT chest wall mass is identified by ultrasound. Ultrasound-guided biopsy can be obtained of this ma ss.
== END 2023-03-27 15:32 | disposition home or self-care (01) ==
LOC: RAD 15:35
PROVIDERS: PCP Family Medicine; Visit Provider Internal Medicine Pulmonary Disease
DX: R91.8 Other nonspecific abnormal finding of lung field (principal)
CPT/HCPCS: 76604

== ENCOUNTER 2023-04-03 17:13 | Outpatient (CLI) | payer MEDICARE, MEDICAID, SELFPAY ==
--- NOTE | 2023-04-03 17:00 | CT_ITS ---
WS: [id number] CT chest w con* [id number] HISTORY: Evaluate left lung mass on PET/CT TECHNIQUE: Axial imaging performed through the thorax. Coronal and sagittal reformats are submitted. All CT scans at [facility] use at least one of these dose optimization techniques: automated exposure control; mA and/or kV adjustment per patient size (includes targeted exams where dose is mat ched to clinical indication); or iterative reconstruction. CONTRAST: Omnipaque 350; 100 mL IV. DLP: 340.22 mGy.cm COMPARISON: Prior chest CT 08/08/2021, PET/CT 02/24/2023 Lungs and central airway: Advanced chronic centrilobular emphysema. Spiculated subpleural mass in the LEFT lower lobe is again identified. Mass now measures 4.5 x 2.0 cm and extends over a length of 3.7 cm. Margins are spiculated with mild adjacent groundglass attenuation and reactive pleural fluid. Ma ss has slightly increased in size since the PET/CT of 02/24/2023. There are additional bilateral numer ous very small peripheral nodules and spiculations. The nodules and spiculations have become more pro minent. RIGHT lower lobe nodule measures 0.9 cm which has slightly increased in size. The area of ple ural thickening at the medial LEFT lung base described on the PET/CT has increased now measuring 2.1 x 0.7 cm. This lesion was noted to be positive on the PET/CT. Pleura: Small reactive LEFT pleural effusion adjacent to the spiculated mass. Heart and pericardium: Mild cardiomegaly. Mediastinum and jonas: 1.4 cm RIGHT hilar lymph node. Lymph node has slightly more prominent than on t he PET/CT. Vessels: Moderate atherosclerosis aorta. Mild pulmonary enlargement. Chest wall and lower neck: Patient has had known PET/CT positive mass within the LEFT pectoralis musc les which is contiguous with the abnormal sternal body. Mass measures at least 2.1 x 6.2 cm and has b ecome more prominent since the PET/CT. Upper abdomen: Cholelithiasis. New mild thickening of the LEFT adrenal gland measuring 15 x 22 mm. No lesions in the liver. Small hiatal hernia. Osseous structures: Progression of sclerotic metastatic changes within the manubrium and the sternal body. Probable pathological fracture in the inferior sternum. This is contiguous with the chest wall mass. No destructive changes of the scapula. No identifiable soft tissue mass adjacent to the scapula . There is very mild paravertebral soft tissue thickening at the T5 level. Possible early metastatic site. Metastasis were described within T4 and T5 on the recent PET/CT. Additional sclerotic changes i ncompletely visualized within the L2 vertebral body. IMPRESSION: 1. Mild increase in size of the LEFT lower lobe PET/CT positive mass since 02/24/2023. Mass measures 4 .5 x 2.0 x 3.7 cm. Small amount of reactive pleural fluid. 2. Increase in size of the PET/CT positive subpleural nodule in the medial LEFT lower lobe now measur ing 2.0 x 0.7 cm. 3. Additional new scattered small nodules throughout both lungs and spiculated nodules. These are keven y small but have increased in size and number. These could be metastatic sites versus inflammatory no dules. 4. Increase in size of the LEFT chest wall mass. 5. Progressive metastatic disease throughout the sternum. 6. Indeterminate RIGHT hilar lymph node at 1.4 cm. 7. New mild thickening and nodularity of the LEFT adrenal gland which could be metastatic. 8. Known metastatic disease within T4, T5 and L2. Better seen on the PET/CT. There is soft tissue thi ckening adjacent to the T5 vertebral body. 9. Cholelithiasis.
[2023-04-03 17:46] LABS: Blood Urea Nitrogen 19 mg/dL (8-23)
[2023-04-03] MEDS: iohexol 350 mg/mL 500 mL Btl (per mL) IV (17:50)
== END 2023-04-03 17:14 | disposition home or self-care (01) ==
LOC: RAD 17:14
PROVIDERS: PCP Family Medicine; Visit Provider Internal Medicine Medical Oncology
DX: R91.8 Other nonspecific abnormal finding of lung field (principal); C79.51 Secondary malignant neoplasm of bone; K80.20 Calculus of gallbladder without cholecystitis without obstruction
CPT/HCPCS: 71260; 82565; 84520; Q9967

== ENCOUNTER 2023-04-04 09:12 | Outpatient (CLI) | payer MEDICARE, MEDICAID, SELFPAY ==
--- NOTE | 2023-04-04 09:15 | US_ITS ---
WS: [id number] ULTRASOUND GUIDED BIOPSY LEFT CHEST WALL MASS. HISTORY: PET/CT positive chest wall mass. Procedure, risks, and complications are explained to the patient. Consent was obtained. Skin is clean sed with ChloraPrep and anesthetized with 1% buffered lidocaine. Hypoechoic mass is identified involving the LEFT chest wall. The skin is cleansed with ChloraPrep and anesthetized with 1% buffered lidocaine. Core biopsies are performed with an 18-gauge Temno needle. Multiple cores are obtained and placed in formalin. No complications were encountered. Patient will b e observed post procedure for any complications. IMPRESSION: Uncomplicated core needle biopsy of a LEFT chest wall mass. Specimen placed in formalin and delivered to pathology.
[2023-04-27 11:33] LABS: PD-L1 (Clone 22C3) by IHC BBPL See Report
== END 2023-04-04 09:13 | disposition home or self-care (01) ==
LOC: RAD 09:13
PROVIDERS: PCP Family Medicine; Visit Provider Internal Medicine Pulmonary Disease
DX: C79.89 Secondary malignant neoplasm of other specified sites (principal); C80.1 Malignant (primary) neoplasm, unspecified
CPT/HCPCS: 76942; 88307; 88341; 88342

== ENCOUNTER → 2023-04-17 13:42 | Outpatient (BNVA) | payer MEDICARE, MEDICAID, SELFPAY | PROVIDERS: PCP Family Medicine; Visit Provider Internal Medicine Pulmonary Disease | DX: C79.9 Secondary malignant neoplasm of unspecified site (principal); R59.0 Localized enlarged lymph nodes; Z85.820 Personal history of malignant melanoma of skin; Z87.891 Personal history of nicotine dependence | CPT/HCPCS: 99214 ==

== ENCOUNTER 2023-04-24 11:09 | Oncology outpatient (recurring) (ONCR) | payer MEDICARE, MEDICAID, SELFPAY | END 2023-05-15 23:59 | disposition home or self-care (01) | PROVIDERS: PCP Family Medicine; Visit Provider Internal Medicine Medical Oncology | DX: C79.9 Secondary malignant neoplasm of unspecified site (principal); R59.0 Localized enlarged lymph nodes; Z85.828 Personal history of other malignant neoplasm of skin; R64 Cachexia; Z87.891 Personal history of nicotine dependence | CPT/HCPCS: 36415; 99215 ==

== ENCOUNTER → 2023-05-02 16:06 | Day surgery (SDC) | payer MEDICARE, MEDICAID, SELFPAY | PROVIDERS: PCP Family Medicine; Visit Provider Otolaryngology | DX: K14.8 Other diseases of tongue (principal); K13.79 Other lesions of oral mucosa; R59.0 Localized enlarged lymph nodes; R91.8 Other nonspecific abnormal finding of lung field; R64 Cachexia; Z68.1 Body mass index [BMI] 19.9 or less, adult | CPT/HCPCS: 99213; 99215 ==